=== PATIENT | female | born 1960 | race African-American/Black ===

== ENCOUNTER 2016-11-24 14:20 | Emergency (ER) | payer MEDICARE ==
[2016-11-24] MEDS ORDERED: ONDANSETRON 4MG/2ML VIAL (J2405) As Ordered ONE (15:58)
--- NOTE | 2016-11-24 16:01 | REP ---
ABDOMEN AND FLAT UPRIGHT PA CHEST, THREE VIEWS: HISTORY: Abdominal pain. A small amount of air is present in small and large intestine. There are no air fluid levels or dilated loops of intestine. There is no pneumoperitoneum. A 10 mm calcification is present in the left lateral abdomen. The lungs are clear. IMPRESSION: Nonspecific bowel gas pattern. Signed by Suleiman Colon MD 11/24/2016 04:05 P
[2016-11-24] MEDS ORDERED: PANTOPRAZOLE 40MG INJ (PROTONIX) (C9113) As Ordered ONE (16:06)
[2016-11-24 16:12] LABS: MEAN CORPUSCULAR HEMOGLOBIN 41.9 pg (27.0-33.0); MEAN CORPUSCULAR HGB CONC 33.8 g/dl (32.0-36.5); MEAN CORPUSCULAR VOLUME 123.9 fl (80.0-96.0); PLATELET COUNT, AUTOMATED 219 k/mm3 (150-450); RED CELL DISTRIBUTION WIDTH 19.6 % (11.5-14.5); WHITE BLOOD COUNT 4.7 K/mm3 (4.0-10.0)
[2016-11-24 16:16] LABS: ALBUMIN 3.8 GM/DL (3.2-5.2); ALBUMIN/GLOBULIN RATIO 1.06 (1.00-1.93); ALKALINE PHOSPHATASE 92 U/L (45-117); ALT/SGPT 71 U/L (12-78); AMYLASE 37 U/L (25-115); ANION GAP 11 MEQ/L (8-16); AST/SGOT 157 U/L (15-37); BILIRUBIN,DIRECT 0.4 MG/DL (0.0-0.2); BILIRUBIN,TOTAL 2.6 MG/DL (0.2-1.0); BLOOD UREA NITROGEN 9 MG/DL (7-18); CARBON DIOXIDE LEVEL 24 MEQ/L (21-32); CHLORIDE LEVEL 109 MEQ/L (98-107); CREATININE FOR GFR 0.75 MG/DL (0.55-1.02); GLOMERULAR FILTRATION RATE > 60.0 (>51); GLUCOSE, FASTING 97 MG/DL (70-105); POTASSIUM SERUM 3.7 MEQ/L (3.5-5.1); SODIUM LEVEL 144 MEQ/L (136-145); TOTAL PROTEIN 7.4 GM/DL (6.4-8.2)
[2016-11-24 16:21] LABS: INR 1.05
[2016-11-24 17:23] LABS: BASOPHILS 1 % (0-4); EOSINOPHILS 4 % (0-5); NUCLEATED RED BLOOD CELL 2 % (0-0)
[2016-11-24 17:24] LABS: ANISOCYTOSIS 2+; POIKILOCYTOSIS 1+; POLYCHROMASIA 1+; TEAR DROP CELLS 1+
--- NOTE | 2016-11-24 18:25 | EDDOCDS ---
Physician Documentation [facility] Name: Spring Hamilton Age: 56 yrs Sex: Female : 1960 Arrival Date: 11/24/2016 Time: 14:20 Bed I5 / M5 Private MD: NO PRIMARY PHYSICIAN, . Disposition: 11/24/16 17:56 Discharged to Home/Self Care. Impression: Anemia, unspecified, Urinary tract infection, site not specified, Nausea. - Condition is Stable. - Discharge Instructions: Anemia, Nonspecific, Urinary Tract Infection, [id number]. - Prescriptions for Cipro 500 mg Oral Tablet - take 1 tablet by ORAL route every 12 hours; 14 tablet. Pyridium 200 mg Oral Tablet - take 1 tablet by ORAL route every 8 hours for 3 days; 9 tablet. Zofran 4 mg Oral Tablet - take 1 tablet by ORAL route 4 times per day As needed; 10 tablet. - Medication Reconciliation, Local Pharmacy Hours form. - Follow up: Private Physician; When: 4 - 5 days; Reason: Recheck today's complaints, Continuance of care. - Problem is an ongoing problem. - Symptoms are unchanged. Historical: - Allergies: No known drug Allergies; - Home Meds: 1. pantoprazole 40 mg oral TbEC 1 tab once daily hasn't been taking because she read side effects 2. ibuprofen 800 mg Oral tab as needed (Last dose: Unknown) - PMHx: GERD; - PSHx: Cesearean Section; - Social history: Smoking status: Patient states was never smoker of tobacco. No barriers to communication noted, The patient speaks fluent Vietnamese, Speaks appropriately for age. - Family history: Not pertinent. - : The pt / caregiver states he / she is not on anticoagulants. Home medication list is obtained from the patient. - Exposure Risk Screening:: None identified. [employer]: 11/24 14:39 LMP N/A - Post-menopause ck1 Vital Signs: 14:21 BP 147 / 77; Pulse 90; Resp 18; Temp 98.6(O); Pulse Ox 100% on R/A; Weight 102.51 kg / dem1 226 lbs (M); Height 5 ft. 4 in. (162.56 cm); Pain 0/10; 18:21 BP 143 / 74; Pulse 80; Resp 16; Temp 97.7; Pulse Ox 95% ; Pain 0/10; cjh 14:21 Body Mass Index 38.79 (102.51 kg, 162.56 cm) dem1 MDM: 15:15 Undress patient appropriately for examination ordered. ke 15:15 NS 0.9% 1000 ml IV at 250 mL/hr continuous ordered. ke 15:15 Ondansetron 4 mg IVP once ordered. ke 15:15 pantoprazole 40 mg IV at bolus once ordered. ke 15:16 Amylase Ordered. EDMS 15:16 Basic Metabolic Profile Ordered. EDMS 15:16 CBC with Diff Ordered. EDMS 15:16 Lipase Ordered. EDMS 15:16 Liver Profile Ordered. EDMS 15:16 Prothrombin Time Profile\E\INR Ordered. EDMS 15:16 Urinalysis Ordered. EDMS 15:17 Urine Culture Ordered. EDMS 15:17 Abdomen, Flat\E\Upright,PA Chest Ordered. EDMS 15:17 NOTHING BY MOUTH+DIET ordered. EDMS 15:18 GASTROINTESTINAL (GI) PANEL Ordered. EDMS 16:14 DIFFERENTIAL NO CHARGE Ordered. EDMS 16:14 PLATELET ESTIMATE Ordered. EDMS 16:42 Financial registration complete. gjb 16:58 [facility] Payment Agreement was scanned into [employer] and attached to record. gjb 17:04 Basic Metabolic Profile Reviewed. ke 17:04 CBC with Diff Reviewed. ke 17:04 Liver Profile Reviewed. ke 17:04 Amylase Reviewed. ke 17:04 Lipase Reviewed. ke 17:04 Prothrombin Time Profile\E\INR Reviewed. ke 17:04 Abdomen, Flat\E\Upright,PA Chest Reviewed. ke 17:45 CBC with Diff Reviewed. ke 17:45 Urinalysis Reviewed. ke 17:45 PLATELET ESTIMATE Reviewed. ke Administered Medications: 16:15 Drug: Ondansetron 4 mg Route: IVP; Site: left antecubital; [facility] 16:15 Drug: pantoprazole 40 mg [pantoprazole 40 mg intravenous solution] Route: IV; Rate: cjh bolus; Site: left antecubital; 16:16 Drug: NS 0.9% 1000 ml Route: IV; Rate: 250 mL/hr; Site: right antecubital; [facility] 18:23 Follow up: IV Status: Infusion discontinued; IV Intake: 250ml [facility] Signatures: Dispatcher [employer] EDMS Chon Qiu, TELEMARKETING AGENT TELEMARKETING AGENT Amalia Rondon,RN RN ck1 Anahi RussoRN RN Bibiana Xiao The chart was reviewed and I authenticate all verbal orders and agree with the evaluation and treatment provided.Corrections: (The following items were deleted from the chart) 15:18 15:17 GASTROINTESTINAL (GI) PANEL+AZUCENA ordered. EDMS EDMS Attachments: 16:58 [facility] Payment Agreement abel MTDD
--- NOTE | 2016-11-24 18:25 | EDDOCDS ---
Nurse's Notes [facility] Name: Spring Hamilton Age: 56 yrs Sex: Female : 1960 Arrival Date: 11/24/2016 Time: 14:20 Bed I5 / M5 Private MD: NO PRIMARY PHYSICIAN, . Diagnosis: Anemia, unspecified;Urinary tract infection, site not specified;Nausea Presentation: 11/24 14:32 Presenting complaint: Patient states: "unable to tolerate any food", states immediate ck1 diarrhea after eating, increased weakness, "I feel like I have and unsteady gait". Drinking from [employer] to go cup. Denies pain. Adult Sepsis Screening: The patient does not have new or worsening altered mentation. Patient's respiratory rate is less than 22. Systolic blood pressure is greater than 100. Patient has a qSOFA score of 0- Negative Sepsis Screen. Suicide/Homicide risk assessment- the patient denies having any suicidal and/or homicidal ideations and does not present with any other emotional, behavioral or mental health complaints. 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 Transition of care: patient was not received from another setting of care. 14:32 Method Of Arrival: Walkin/Carried/Asstd ck1 14:32 Acuity: SALVATORE Level 3 ck1 Triage Assessment: 14:38 General: Appears in no apparent distress, comfortable, Behavior is appropriate for age, ck1 cooperative. Pain: Denies pain. HIV screening NA for this visit Offered previously. Neurological: Level of Consciousness is awake, alert, obeys commands, Oriented to person, place, time. Respiratory: Respiratory effort is unlabored, Respiratory pattern is regular, symmetrical. GI: Reports diarrhea. GI: Reports nausea. Derm: Skin is intact, is healthy with good turgor, Skin is pink, warm & dry. Musculoskeletal: Circulation, motion, and sensation intact Range of motion intact in all extremities. CONTENT PUBLISHER: 14:39 LMP N/A - Post-menopause ck1 Historical: - Allergies: No known drug Allergies; - Home Meds: 1. pantoprazole 40 mg oral TbEC 1 tab once daily hasn't been taking because she read side effects 2. ibuprofen 800 mg Oral tab as needed (Last dose: Unknown) - PMHx: GERD; - PSHx: Cesearean Section; - Social history: Smoking status: Patient states was never smoker of tobacco. No barriers to communication noted, The patient speaks fluent Jordanian, Speaks appropriately for age. - Family history: Not pertinent. - : The pt / caregiver states he / she is not on anticoagulants. Home medication list is obtained from the patient. - Exposure Risk Screening:: None identified. Screenin:16 Screening information is obtained from the patient. Fall risk: No risks identified. [facility] Assistance ADL's: requires no assistance with activities of daily living. Abuse/DV Screen: The patient / caregiver reports he/she is: not in a situation that causes fear, pain or injury. Nutritional screening: No deficits noted. Advance Directives: There is no active DNR order. home support is adequate. Assessment: 16:16 General: Appears in no apparent distress, comfortable, Behavior is appropriate for age, [facility] cooperative. Respiratory: Airway is patent Respiratory effort is even, unlabored, Respiratory pattern is regular, symmetrical. GI: Abdomen is non- distended Bowel sounds present X 4 quads. Abd is soft Abd is tender to palpation X 4 quads. Reports diarrhea. Derm: Skin is normal. 17:00 General: Appears in no apparent distress, comfortable, Behavior is appropriate for age, [facility] cooperative, warm blankets provided, denies needs at this time. 18:21 General: Appears in no apparent distress, comfortable, Behavior is appropriate for age, [facility] cooperative. General: reports feeling much better, reviewed discharge instructions, encouraged and answered questions, denies further needs. Pain: Denies pain. Vital Signs: 14:21 BP 147 / 77; Pulse 90; Resp 18; Temp 98.6(O); Pulse Ox 100% on R/A; Weight 102.51 kg [facility] (M); Height 5 ft. 4 in. (162.56 cm); Pain 0/10; 18:21 BP 143 / 74; Pulse 80; Resp 16; Temp 97.7; Pulse Ox 95% ; Pain 0/10; h 14:21 Body Mass Index 38.79 (102.51 kg, 162.56 cm) [facility] Vitals: 14:21 Log In Time: November 24, 2016 at 14:15. [facility] ED Course: 14:21 Patient visited by Uriah Harrison. [facility] 14:21 NO PRIMARY PHYSICIAN, . is Private Physician. dem1 14:21 Patient moved to Waiting dem1 14:23 Patient moved to Pre RCE dem1 14:36 Triage Initiated ck1 14:57 Patient moved to Triage 1 ck1 15:08 [facility] ke 15:08 Patient visited by Chon Qiu FNP. ke 15:08 Patient visited by Chon Qiu FNP. ke 15:17 Patient moved to I5 / M5 ttb 15:26 Patient visited by Zarina Gorman PCA. jlf 15:47 Patient visited by Chon Qiu FNP. ke 16:11 Patient visited by Zarina Gorman PCA. jlf 16:16 The patient / caregiver is instructed regarding the plan of care and ED course. cjh 16:16 Abdomen, Flat\\E\\Upright,PA Chest Returned. EDMS 16:16 Inserted saline lock: 20 gauge in right antecubital area and blood collected. The [facility] patient tolerated the procedure well. Labs drawn. (by ED staff). Sent per order to lab. 16:22 Patient visited by Zarina Gorman PCA. jlf 16:41 Patient visited by Zarina Groman PCA. jlf 16:41 Urinalysis Sent. jlf 16:41 Urine Culture Sent. jlf 16:58 [facility] Payment Agreement was scanned into [employer] and attached to record. gjb 17:20 Patient name changed from Spring\\S\\\\S\\Alfonso\\S\\ to Spring\\S\\Ines\\S\\Alfonso. EDMS 17:25 Patient visited by Chon Qiu FNP. ke 18:21 Discontinued lock intact, bleeding controlled, pressure dressing applied, No cjh redness/swelling at site. No procedures done that require assistance. Administered Medications: 16:15 Drug: Ondansetron 4 mg Route: IVP; Site: left antecubital; [facility] 16:15 Drug: pantoprazole 40 mg [pantoprazole 40 mg intravenous solution] Route: IV; Rate: cjh bolus; Site: left antecubital; 16:16 Drug: NS 0.9% 1000 ml Route: IV; Rate: 250 mL/hr; Site: right antecubital; [facility] 18:23 Follow up: IV Status: Infusion discontinued; IV Intake: 250ml cjh Intake: 18:23 IV: 250.00ml; Total: 250.00ml. [facility] Order Results: Lab Order: Amylase; SPEC'M 11/24/16 15:47 Test: AMYLASE; Value: 37; Range: 25-115; Units: U/L; Status: F Lab Order: Basic Metabolic Profile; SPEC'M 11/24/16 15:47 Test: GLUCOSE, FASTING; Value: 97; Range: 70-105; Units: MG/DL; Status: F Test: BLOOD UREA NITROGEN; Value: 9; Range: 7-18; Units: MG/DL; Status: F Test: CREATININE FOR GFR; Value: 0.75; Range: 0.55-1.02; Units: MG/DL; Status: F Test: GLOMERULAR FILTRATION RATE; Value: > 60.0; Range: >51; Status: F Test: SODIUM LEVEL; Value: 144; Range: 136-145; Units: MEQ/L; Status: F Test: POTASSIUM SERUM; Value: 3.7; Range: 3.5-5.1; Units: MEQ/L; Status: F Test: CHLORIDE LEVEL; Value: 109; Range: 98-107; Abnormal: Above high normal; Units: MEQ/L; Status: F Test: CARBON DIOXIDE LEVEL; Value: 24; Range: 21-32; Units: MEQ/L; Status: F Test: ANION GAP; Value: 11; Range: 8-16; Units: MEQ/L; Status: F Test: CALCIUM LEVEL; Value: 8.0; Range: 8.5-10.1; Abnormal: Below low normal; Units: MG/DL; Status: F Test Note: ; Units are mL/min/1.73 m2 Chronic Kidney Disease Staging per NKF: Stage I & II GFR >=60 Normal to Mildly Decreased Stage III GFR 30-59 Moderately Decreased Stage IV GFR 15-29 Severely Decreased Stage V GFR <15 Very Little GFR Left ESRD GFR <15 on HOME HEALTH CARE CASE MANAGER Lab Order: CBC with Diff; SPEC'M 11/24/16 15:47 Test: WHITE BLOOD COUNT; Value: 4.7; Range: 4.0-10.0; Units: K/mm3; Status: F Test: RED BLOOD COUNT; Value: 2.05; Range: 4.00-5.40; Abnormal: Below low normal; Units: M/mm3; Status: F Test: HEMOGLOBIN; Value: 8.6; Range: 12.0-16.0; Abnormal: Below low normal; Units: g/dl; Status: F Test: HEMATOCRIT; Value: 25.3; Range: 36.0-47.0; Abnormal: Below low normal; Units: %; Status: F Test: MEAN CORPUSCULAR VOLUME; Value: 123.9; Range: 80.0-96.0; Abnormal: Above high normal; Units: fl; Status: F Test: MEAN CORPUSCULAR HEMOGLOBIN; Value: 41.9; Range: 27.0-33.0; Abnormal: Above high normal; Units: pg; Status: F Test: MEAN CORPUSCULAR HGB CONC; Value: 33.8; Range: 32.0-36.5; Units: g/dl; Status: F Test: RED CELL DISTRIBUTION WIDTH; Value: 19.6; Range: 11.5-14.5; Abnormal: Above high normal; Units: %; Status: F Test: PLATELET COUNT, AUTOMATED; Value: 219; Range: 150-450; Units: k/mm3; Status: F Test: PLATELET ESTIMATE; Range: NORMAL; Status: I Test: NEUTROPHILS; Value: 65; Range: 35-75; Units: %; Status: F Test: LYMPHOCYTES; Value: 29; Range: 16-52; Units: %; Status: F Test: MONOCYTES; Value: 1; Range: 0-8; Units: %; Status: F Test: EOSINOPHILS; Value: 4; Range: 0-5; Units: %; Status: F Test: BASOPHILS; Value: 1; Range: 0-4; Units: %; Status: F Test: NUCLEATED RED BLOOD CELL; Value: 2; Range: 0-0; Abnormal: Above high normal; Units: %; Status: F Test: POLYCHROMASIA; Value: 1+; Status: F Test: POIKILOCYTOSIS; Value: 1+; Status: F Test: ANISOCYTOSIS; Value: 2+; Status: F Test: MACROCYTOSIS; Value: 3+; Status: F Test: TEAR DROP CELLS; Value: 1+; Status: F Lab Order: Lipase; SPEC'M 11/24/16 15:47 Test: LIPASE; Value: 116; Range: 73-393; Units: U/L; Status: F Lab Order: Liver Profile; [facility] 11/24/16 15:47 Test: AST/SGOT; Value: 157; Range: 15-37; Abnormal: Above high normal; Units: U/L; Status: F Test: ALT/SGPT; Value: 71; Range: 12-78; Units: U/L; Status: F Test: ALKALINE PHOSPHATASE; Value: 92; Range: 45-117; Units: U/L; Status: F Test: BILIRUBIN,TOTAL; Value: 2.6; Range: 0.2-1.0; Abnormal: Above high normal; Units: MG/DL; Status: F Test: BILIRUBIN,DIRECT; Value: 0.4; Range: 0.0-0.2; Abnormal: Above high normal; Units: MG/DL; Status: F Test: TOTAL PROTEIN; Value: 7.4; Range: 6.4-8.2; Units: GM/DL; Status: F Test: ALBUMIN; Value: 3.8; Range: 3.2-5.2; Units: GM/DL; Status: F Test: ALBUMIN/GLOBULIN RATIO; Value: 1.06; Range: 1.00-1.93; Status: F Lab Order: Prothrombin Time Profile\\E\\INR; [facility] 11/24/16 15:47 Test: PROTHROMBIN TIME; Value: 13.8; Range: 12.3-14.5; Units: SECONDS; Status: F Test: INR; Value: 1.05; Status: F Test Note: ; THERAPUTIC HUMAN INR VALUES INDICATIONS NORMAL RANGES PROPHYLAXIS/TREATMENT OF: VENOUS THROMBOSIS 2.0-3.0 PULMONARY EMBOLISM 2.0-3.0 PREVENTION OF SYSTEMIC EMBOLISM FROM: TISSUE HEART VALVES 2.0-3.0 ACUTE MYOCARDIAL INFARCTION 2.0-3.0 VALVULAR HEART DISEASE 2.0-3.0 ATRIAL FIBRILLATION 2.0-3.0 MECHANICAL VALVES(HIGH RISK) 2.5-3.5 RECURRENT MYOCARDIAL INFARCTION 2.5-3.5 Lab Order: Urinalysis; [facility] 11/24/16 16:36 Test: APPEARANCE, URINE; Value: CLEAR; Range: CLEAR; Status: F Test: COLOR, URINE; Value: DILLON; Range: YELLOW; Status: F Test: PH,URINE; Value: 6.0; Range: 5.0-9.0; Units: UNITS; Status: F Test: SPECIFIC GRAVITY URINE AUTO; Value: 1.019; Range: 1.002-1.035; Status: F Test: PROTEIN, URINE AUTO; Value: 1+; Range: NEGATIVE; Abnormal: Above high normal; Units: mg/dL; Status: F Test: GLUCOSE, URINE (UA) AUTO; Value: NEGATIVE; Range: NEGATIVE; Units: mg/dL; Status: F Test: KETONE, URINE AUTO; Value: TRACE; Range: NEGATIVE; Abnormal: Above high normal; Units: mg/dL; Status: F Test: UROBILINOGEN, URINE AUTO; Value: 4.0; Range: 0.0-2.0; Abnormal: Above high normal; Units: mg/dL; Status: F Test: BILIRUBIN, URINE AUTO; Value: 1+; Range: NEGATIVE; Abnormal: Above high normal; Status: F Test: NITRITE, URINE AUTO; Value: NEGATIVE; Range: NEGATIVE; Status: F Test: LEUKOCYTE ESTERASE, URINE AUTO; Value: 3+; Range: NEGATIVE; Abnormal: Above high normal; Status: F Test: BLOOD, URINE BLOOD; Value: 1+; Range: NEGATIVE; Abnormal: Above high normal; Status: F Test: WBC, URINE AUTO; Value: TNTC; Range: 0-3; Abnormal: Above high normal; Units: /HPF; Status: F Test: RBC, URINE AUTO; Value: 7; Range: 0-3; Abnormal: Above high normal; Units: /HPF; Status: F Test: BACTERIA, URINE AUTO; Value: 3+; Range: NEGATIVE; Abnormal: Above high normal; Status: F Test: SQUAMOUS EPITHELIAL CELL UR AU; Value: 1; Range: 0-6; Units: /HPF; Status: F Test: MUCUS, URINE; Value: LARGE; Range: NEGATIVE; Status: F Test: HYALINE CAST, URINE AUTO; Value: 5; Range: 0-1; Units: /LPF; Status: F Test: AMORPHOUS SEDIMENT; Value: SMALL; Range: NEGATIVE; Abnormal: Above high normal; Status: F Lab Order: PLATELET ESTIMATE; SPEC'M 11/24/16 15:47 Test: PLATELET ESTIMATE; Value: NORMAL; Range: NORMAL; Status: F Radiology Order: Abdomen, Flat\\E\\Upright,PA Chest Test: Abdomen, Flat\\E\\Upright,PA Chest REASON FOR EXAMINATION: Abdomen Pain; ABDOMEN AND FLAT UPRIGHT PA CHEST, THREE VIEWS:; ; HISTORY: Abdominal pain.; ; A small amount of air is present in small and large intestine. There are no air; fluid levels or dilated loops of intestine. There is no pneumoperitoneum. A 10; mm calcification is present in the left lateral abdomen. The lungs are clear.; ; IMPRESSION:; ; Nonspecific bowel gas pattern.; ; ; Signed by; Suleiman Colon MD 11/24/2016 04:05 P; Outcome: 17:56 Discharge ordered by Provider. dariana 18:21 Discharge Assessment: Patient awake, alert and oriented x 3. No cognitive and/or [facility] functional deficits noted. Patient verbalized understanding of disposition instructions. patient administered narcotics - no. The following High Risk Discharge criteria are identified: None. Discharged to home ambulatory, with family. Condition: good Condition: stable Condition: improved. Discharge instructions given to patient, Instructed on discharge instructions, follow up and referral plans. medication usage, Demonstrated understanding of instructions, medications, Pt was receptive of discharge instructions/ teaching. Prescriptions given X 4. No special radiology studies were completed. Property :Personal belongings accompany Pt. 18:24 Patient left the ED. [facility] Signatures: Dispatcher [employer] EDMS Chon Qiu, HISTORY TUTOR HISTORY TUTOR Amalia RondonRN Uriah Antunez Jane, RN RN [facility] Heidi Pat RN RN ttb [place], Jordain, LACHO SADDLE STITCHER Bibiana Anand MTDD
--- NOTE | 2016-11-26 19:25 | EDDOCDS ---
Nurse's Notes [facility] Name: Spring Hamilton Age: 56 yrs Sex: Female : 1960 Arrival Date: 11/24/2016 Time: 14:20 Bed I5 / M5 Private MD: NO PRIMARY PHYSICIAN, . Diagnosis: Anemia, unspecified;Urinary tract infection, site not specified;Nausea Presentation: 11/24 14:32 Presenting complaint: Patient states: "unable to tolerate any food", states immediate ck1 diarrhea after eating, increased weakness, "I feel like I have and unsteady gait". Drinking from [employer] to go cup. Denies pain. Adult Sepsis Screening: The patient does not have new or worsening altered mentation. Patient's respiratory rate is less than 22. Systolic blood pressure is greater than 100. Patient has a qSOFA score of 0- Negative Sepsis Screen. Suicide/Homicide risk assessment- the patient denies having any suicidal and/or homicidal ideations and does not present with any other emotional, behavioral or mental health complaints. Status: Patient is not a service department manager or dependent. Transition of care: patient was not received from another setting of care. 14:32 Method Of Arrival: Walkin/Carried/Asstd ck1 14:32 Acuity: SALVATORE Level 3 ck1 Triage Assessment: 14:38 General: Appears in no apparent distress, comfortable, Behavior is appropriate for age, ck1 cooperative. Pain: Denies pain. HIV screening NA for this visit Offered previously. Neurological: Level of Consciousness is awake, alert, obeys commands, Oriented to person, place, time. Respiratory: Respiratory effort is unlabored, Respiratory pattern is regular, symmetrical. GI: Reports diarrhea. GI: Reports nausea. Derm: Skin is intact, is healthy with good turgor, Skin is pink, warm & dry. Musculoskeletal: Circulation, motion, and sensation intact Range of motion intact in all extremities. GROUP LEADER: 14:39 LMP N/A - Post-menopause ck1 Historical: - Allergies: No known drug Allergies; - Home Meds: 1. pantoprazole 40 mg oral TbEC 1 tab once daily hasn't been taking because she read side effects 2. ibuprofen 800 mg Oral tab as needed (Last dose: Unknown) - PMHx: GERD; - PSHx: Cesearean Section; - Social history: Smoking status: Patient states was never smoker of tobacco. No barriers to communication noted, The patient speaks fluent Wallisian, Speaks appropriately for age. - Family history: Not pertinent. - : The pt / caregiver states he / she is not on anticoagulants. Home medication list is obtained from the patient. - Exposure Risk Screening:: None identified. Screenin:16 Screening information is obtained from the patient. Fall risk: No risks identified. [facility] Assistance ADL's: requires no assistance with activities of daily living. Abuse/DV Screen: The patient / caregiver reports he/she is: not in a situation that causes fear, pain or injury. Nutritional screening: No deficits noted. Advance Directives: There is no active DNR order. home support is adequate. Assessment: 16:16 General: Appears in no apparent distress, comfortable, Behavior is appropriate for age, [facility] cooperative. Respiratory: Airway is patent Respiratory effort is even, unlabored, Respiratory pattern is regular, symmetrical. GI: Abdomen is non- distended Bowel sounds present X 4 quads. Abd is soft Abd is tender to palpation X 4 quads. Reports diarrhea. Derm: Skin is normal. 17:00 General: Appears in no apparent distress, comfortable, Behavior is appropriate for age, [facility] cooperative, warm blankets provided, denies needs at this time. 18:21 General: Appears in no apparent distress, comfortable, Behavior is appropriate for age, [facility] cooperative. General: reports feeling much better, reviewed discharge instructions, encouraged and answered questions, denies further needs. Pain: Denies pain. Vital Signs: 14:21 BP 147 / 77; Pulse 90; Resp 18; Temp 98.6(O); Pulse Ox 100% on R/A; Weight 102.51 kg [facility] (M); Height 5 ft. 4 in. (162.56 cm); Pain 0/10; 18:21 BP 143 / 74; Pulse 80; Resp 16; Temp 97.7; Pulse Ox 95% ; Pain 0/10; h 14:21 Body Mass Index 38.79 (102.51 kg, 162.56 cm) [facility] Vitals: 14:21 Log In Time: November 24, 2016 at 14:15. [facility] ED Course: 14:21 Patient visited by Uriah Harrison. [facility] 14:21 NO PRIMARY PHYSICIAN, . is Private Physician. dem1 14:21 Patient moved to Waiting dem1 14:23 Patient moved to Pre RCE dem1 14:36 Triage Initiated ck1 14:57 Patient moved to Triage 1 ck1 15:08 [facility] ke 15:08 Patient visited by Chon Qiu FNP. ke 15:08 Patient visited by Chon Qiu FNP. ke 15:17 Patient moved to I5 / M5 ttb 15:26 Patient visited by Zarina Gorman PCA. jlf 15:47 Patient visited by Chon Qiu FNP. ke 16:11 Patient visited by Zarina Gorman PCA. jlf 16:16 The patient / caregiver is instructed regarding the plan of care and ED course. [facility] 16:16 Abdomen, Flat\\E\\Upright,PA Chest Returned. EDMS 16:16 Inserted saline lock: 20 gauge in right antecubital area and blood collected. The [facility] patient tolerated the procedure well. Labs drawn. (by ED staff). Sent per order to lab. 16:22 Patient visited by Zarina Gorman PCA. jlf 16:41 Patient visited by Zarina Gorman PCA. jlf 16:41 Urinalysis Sent. jlf 16:41 Urine Culture Sent. jlf 16:58 [facility] Payment Agreement was scanned into [employer] and attached to record. gjb 17:20 Patient name changed from Spring\\S\\\\S\\Alfonso\\S\\ to Spring\\S\\Ines\\S\\Alfonso. EDMS 17:25 Patient visited by Chon Qiu FNP. ke 18:21 Discontinued lock intact, bleeding controlled, pressure dressing applied, No [facility] redness/swelling at site. No procedures done that require assistance. 11/25 09:56 T-Sheet-- Draft Copy was scanned into [employer] and attached to record. gb Administered Medications: 11/24 16:15 Drug: Ondansetron 4 mg Route: IVP; Site: left antecubital; [facility] 16:15 Drug: pantoprazole 40 mg [pantoprazole 40 mg intravenous solution] Route: IV; Rate: cjh bolus; Site: left antecubital; 16:16 Drug: NS 0.9% 1000 ml Route: IV; Rate: 250 mL/hr; Site: right antecubital; cjh 18:23 Follow up: IV Status: Infusion discontinued; IV Intake: 250ml [facility] Intake: 18:23 IV: 250.00ml; Total: 250.00ml. [facility] Order Results: Lab Order: Amylase; SPEC'M 11/24/16 15:47 Test: AMYLASE; Value: 37; Range: 25-115; Units: U/L; Status: F Lab Order: Basic Metabolic Profile; SPEC' 11/24/16 15:47 Test: GLUCOSE, FASTING; Value: 97; Range: 70-105; Units: MG/DL; Status: F Test: BLOOD UREA NITROGEN; Value: 9; Range: 7-18; Units: MG/DL; Status: F Test: CREATININE FOR GFR; Value: 0.75; Range: 0.55-1.02; Units: MG/DL; Status: F Test: GLOMERULAR FILTRATION RATE; Value: > 60.0; Range: >51; Status: F Test: SODIUM LEVEL; Value: 144; Range: 136-145; Units: MEQ/L; Status: F Test: POTASSIUM SERUM; Value: 3.7; Range: 3.5-5.1; Units: MEQ/L; Status: F Test: CHLORIDE LEVEL; Value: 109; Range: 98-107; Abnormal: Above high normal; Units: MEQ/L; Status: F Test: CARBON DIOXIDE LEVEL; Value: 24; Range: 21-32; Units: MEQ/L; Status: F Test: ANION GAP; Value: 11; Range: 8-16; Units: MEQ/L; Status: F Test: CALCIUM LEVEL; Value: 8.0; Range: 8.5-10.1; Abnormal: Below low normal; Units: MG/DL; Status: F Test Note: ; Units are mL/min/1.73 m2 Chronic Kidney Disease Staging per NKF: Stage I & II GFR >=60 Normal to Mildly Decreased Stage III GFR 30-59 Moderately Decreased Stage IV GFR 15-29 Severely Decreased Stage V GFR <15 Very Little GFR Left ESRD GFR <15 on SALES MARKETING MANAGER Lab Order: CBC with Diff; SPEC'11/24/16 15:47 Test: WHITE BLOOD COUNT; Value: 4.7; Range: 4.0-10.0; Units: K/mm3; Status: F Test: RED BLOOD COUNT; Value: 2.05; Range: 4.00-5.40; Abnormal: Below low normal; Units: M/mm3; Status: F Test: HEMOGLOBIN; Value: 8.6; Range: 12.0-16.0; Abnormal: Below low normal; Units: g/dl; Status: F Test: HEMATOCRIT; Value: 25.3; Range: 36.0-47.0; Abnormal: Below low normal; Units: %; Status: F Test: MEAN CORPUSCULAR VOLUME; Value: 123.9; Range: 80.0-96.0; Abnormal: Above high normal; Units: fl; Status: F Test: MEAN CORPUSCULAR HEMOGLOBIN; Value: 41.9; Range: 27.0-33.0; Abnormal: Above high normal; Units: pg; Status: F Test: MEAN CORPUSCULAR HGB CONC; Value: 33.8; Range: 32.0-36.5; Units: g/dl; Status: F Test: RED CELL DISTRIBUTION WIDTH; Value: 19.6; Range: 11.5-14.5; Abnormal: Above high normal; Units: %; Status: F Test: PLATELET COUNT, AUTOMATED; Value: 219; Range: 150-450; Units: k/mm3; Status: F Test: PLATELET ESTIMATE; Range: NORMAL; Status: I Test: NEUTROPHILS; Value: 65; Range: 35-75; Units: %; Status: F Test: LYMPHOCYTES; Value: 29; Range: 16-52; Units: %; Status: F Test: MONOCYTES; Value: 1; Range: 0-8; Units: %; Status: F Test: EOSINOPHILS; Value: 4; Range: 0-5; Units: %; Status: F Test: BASOPHILS; Value: 1; Range: 0-4; Units: %; Status: F Test: NUCLEATED RED BLOOD CELL; Value: 2; Range: 0-0; Abnormal: Above high normal; Units: %; Status: F Test: POLYCHROMASIA; Value: 1+; Status: F Test: POIKILOCYTOSIS; Value: 1+; Status: F Test: ANISOCYTOSIS; Value: 2+; Status: F Test: MACROCYTOSIS; Value: 3+; Status: F Test: TEAR DROP CELLS; Value: 1+; Status: F Lab Order: Lipase; SPEC'M 11/24/16 15:47 Test: LIPASE; Value: 116; Range: 73-393; Units: U/L; Status: F Lab Order: Liver Profile; [facility] 11/24/16 15:47 Test: AST/SGOT; Value: 157; Range: 15-37; Abnormal: Above high normal; Units: U/L; Status: F Test: ALT/SGPT; Value: 71; Range: 12-78; Units: U/L; Status: F Test: ALKALINE PHOSPHATASE; Value: 92; Range: 45-117; Units: U/L; Status: F Test: BILIRUBIN,TOTAL; Value: 2.6; Range: 0.2-1.0; Abnormal: Above high normal; Units: MG/DL; Status: F Test: BILIRUBIN,DIRECT; Value: 0.4; Range: 0.0-0.2; Abnormal: Above high normal; Units: MG/DL; Status: F Test: TOTAL PROTEIN; Value: 7.4; Range: 6.4-8.2; Units: GM/DL; Status: F Test: ALBUMIN; Value: 3.8; Range: 3.2-5.2; Units: GM/DL; Status: F Test: ALBUMIN/GLOBULIN RATIO; Value: 1.06; Range: 1.00-1.93; Status: F Lab Order: Prothrombin Time Profile\\E\\INR; [facility] 11/24/16 15:47 Test: PROTHROMBIN TIME; Value: 13.8; Range: 12.3-14.5; Units: SECONDS; Status: F Test: INR; Value: 1.05; Status: F Test Note: ; THERAPUTIC HUMAN INR VALUES INDICATIONS NORMAL RANGES PROPHYLAXIS/TREATMENT OF: VENOUS THROMBOSIS 2.0-3.0 PULMONARY EMBOLISM 2.0-3.0 PREVENTION OF SYSTEMIC EMBOLISM FROM: TISSUE HEART VALVES 2.0-3.0 ACUTE MYOCARDIAL INFARCTION 2.0-3.0 VALVULAR HEART DISEASE 2.0-3.0 ATRIAL FIBRILLATION 2.0-3.0 MECHANICAL VALVES(HIGH RISK) 2.5-3.5 RECURRENT MYOCARDIAL INFARCTION 2.5-3.5 Lab Order: Urinalysis; [facility] 11/24/16 16:36 Test: APPEARANCE, URINE; Value: CLEAR; Range: CLEAR; Status: F Test: COLOR, URINE; Value: DILLON; Range: YELLOW; Status: F Test: PH,URINE; Value: 6.0; Range: 5.0-9.0; Units: UNITS; Status: F Test: SPECIFIC GRAVITY URINE AUTO; Value: 1.019; Range: 1.002-1.035; Status: F Test: PROTEIN, URINE AUTO; Value: 1+; Range: NEGATIVE; Abnormal: Above high normal; Units: mg/dL; Status: F Test: GLUCOSE, URINE (UA) AUTO; Value: NEGATIVE; Range: NEGATIVE; Units: mg/dL; Status: F Test: KETONE, URINE AUTO; Value: TRACE; Range: NEGATIVE; Abnormal: Above high normal; Units: mg/dL; Status: F Test: UROBILINOGEN, URINE AUTO; Value: 4.0; Range: 0.0-2.0; Abnormal: Above high normal; Units: mg/dL; Status: F Test: BILIRUBIN, URINE AUTO; Value: 1+; Range: NEGATIVE; Abnormal: Above high normal; Status: F Test: NITRITE, URINE AUTO; Value: NEGATIVE; Range: NEGATIVE; Status: F Test: LEUKOCYTE ESTERASE, URINE AUTO; Value: 3+; Range: NEGATIVE; Abnormal: Above high normal; Status: F Test: BLOOD, URINE BLOOD; Value: 1+; Range: NEGATIVE; Abnormal: Above high normal; Status: F Test: WBC, URINE AUTO; Value: TNTC; Range: 0-3; Abnormal: Above high normal; Units: /HPF; Status: F Test: RBC, URINE AUTO; Value: 7; Range: 0-3; Abnormal: Above high normal; Units: /HPF; Status: F Test: BACTERIA, URINE AUTO; Value: 3+; Range: NEGATIVE; Abnormal: Above high normal; Status: F Test: SQUAMOUS EPITHELIAL CELL UR AU; Value: 1; Range: 0-6; Units: /HPF; Status: F Test: MUCUS, URINE; Value: LARGE; Range: NEGATIVE; Status: F Test: HYALINE CAST, URINE AUTO; Value: 5; Range: 0-1; Units: /LPF; Status: F Test: AMORPHOUS SEDIMENT; Value: SMALL; Range: NEGATIVE; Abnormal: Above high normal; Status: F Lab Order: Urine Culture; SPEC'M 11/24/16 16:35 Test: URINE CULTURE; Value: <EXTERNAL COMMENT eCWMed> FULL REPORT IN LAB NOTES (eCW and Medent).; Status: F Test: URINE CULTURE; Value: ORGANISM 1: ESCHERICHIA COLI; Status: F Test: URINE CULTURE; Value: ESCHERICHIA COLI; Status: F Test: URINE CULTURE; Value: COLONY COUNT CFU/ml >100,000; Status: F Test: URINE CULTURE; Value: GRAM NEG SENSI - VITEK 80; Status: F Test: URINE CULTURE; Value: Method: VIT2; Status: F Test: URINE CULTURE; Value: EXTD BRD SPCTRM BETA LACTAMASE -; Status: F Test: URINE CULTURE; Value: TRIMETHOPRIM/SULFAMETHOXAZOLE <=20 S; Status: F Test: URINE CULTURE; Value: AMPICILLIN >=32 R; Status: F Test: URINE CULTURE; Value: GENTAMICIN <=1 S; Status: F Test: URINE CULTURE; Value: NITROFURANTOIN <=16 S; Status: F Test: URINE CULTURE; Value: CEFAZOLIN <=4 S; Status: F Test: URINE CULTURE; Value: LEVOFLOXACIN >=8 R; Status: F Test: URINE CULTURE; Value: TOBRAMYCIN <=1 S; Status: F Test: URINE CULTURE; Value: CEFTRIAXONE <=1 S; Status: F Test: URINE CULTURE; Value: CEFTAZIDIME <=1 S; Status: F Test: URINE CULTURE; Value: AMPICILLIN/SULBACTAM >=32 R; Status: F Test: URINE CULTURE; Value: PIPERACILLIN/TAZOBACTAM <=4 S; Status: F Test: URINE CULTURE; Value: AZTREONAM <=1 S; Status: F Test: URINE CULTURE; Value: ERTAPENEM <=0.5 S; Status: F Test: URINE CULTURE; Value: MEROPENEM <=0.25 S; Status: F Test: URINE CULTURE; Value: TIGECYCLINE <=0.5 S; Status: F Test: URINE CULTURE; Value: CEFEPIME <=1 S; Status: F Lab Order: PLATELET ESTIMATE; SPEC'M 11/24/16 15:47 Test: PLATELET ESTIMATE; Value: NORMAL; Range: NORMAL; Status: F Radiology Order: Abdomen, Flat\\E\\Upright,PA Chest Test: Abdomen, Flat\\E\\Upright,PA Chest REASON FOR EXAMINATION: Abdomen Pain; ABDOMEN AND FLAT UPRIGHT PA CHEST, THREE VIEWS:; ; HISTORY: Abdominal pain.; ; A small amount of air is present in small and large intestine. There are no air; fluid levels or dilated loops of intestine. There is no pneumoperitoneum. A 10; mm calcification is present in the left lateral abdomen. The lungs are clear.; ; IMPRESSION:; ; Nonspecific bowel gas pattern.; ; ; Signed by; Suleiman Colon MD 11/24/2016 04:05 P; Outcome: 17:56 Discharge ordered by Provider. dariana 18:21 Discharge Assessment: Patient awake, alert and oriented x 3. No cognitive and/or [facility] functional deficits noted. Patient verbalized understanding of disposition instructions. patient administered narcotics - no. The following High Risk Discharge criteria are identified: None. Discharged to home ambulatory, with family. Condition: good Condition: stable Condition: improved. Discharge instructions given to patient, Instructed on discharge instructions, follow up and referral plans. medication usage, Demonstrated understanding of instructions, medications, Pt was receptive of discharge instructions/ teaching. Prescriptions given X 4. No special radiology studies were completed. Property :Personal belongings accompany Pt. 18:24 Patient left the ED. [facility] Signatures: Dispatcher [employer] EDMS Savanah Torres, Reg Reg gb Chon Qiu, SENIOR ETL DEVELOPER SENIOR ETL DEVELOPER Amalia RondonRN RN Uriah Jefferson Jane, RN RN [facility] Heidi Pat RN RN ttb Forney, Jordain, LACHO GLUE JOINTER OPERATOR Bibiana Anand Chart Complete MTDD
--- NOTE | 2016-11-26 19:25 | EDDOCDS ---
Physician Documentation [facility] Name: Spring Hamilton Age: 56 yrs Sex: Female : 1960 Arrival Date: 11/24/2016 Time: 14:20 Bed I5 / M5 Private MD: NO PRIMARY PHYSICIAN, . Disposition: 11/24/16 17:56 Discharged to Home/Self Care. Impression: Anemia, unspecified, Urinary tract infection, site not specified, Nausea. - Condition is Stable. - Discharge Instructions: Anemia, Nonspecific, Urinary Tract Infection, [id number]. - Prescriptions for Cipro 500 mg Oral Tablet - take 1 tablet by ORAL route every 12 hours; 14 tablet. Pyridium 200 mg Oral Tablet - take 1 tablet by ORAL route every 8 hours for 3 days; 9 tablet. Zofran 4 mg Oral Tablet - take 1 tablet by ORAL route 4 times per day As needed; 10 tablet. - Medication Reconciliation, Local Pharmacy Hours form. - Follow up: Private Physician; When: 4 - 5 days; Reason: Recheck today's complaints, Continuance of care. - Problem is an ongoing problem. - Symptoms are unchanged. Historical: - Allergies: No known drug Allergies; - Home Meds: 1. pantoprazole 40 mg oral TbEC 1 tab once daily hasn't been taking because she read side effects 2. ibuprofen 800 mg Oral tab as needed (Last dose: Unknown) - PMHx: GERD; - PSHx: Cesearean Section; - Social history: Smoking status: Patient states was never smoker of tobacco. No barriers to communication noted, The patient speaks fluent [place], Speaks appropriately for age. - Family history: Not pertinent. - : The pt / caregiver states he / she is not on anticoagulants. Home medication list is obtained from the patient. - Exposure Risk Screening:: None identified. SENIOR UI WEB DEVELOPER: 11/24 14:39 LMP N/A - Post-menopause ck1 Vital Signs: 14:21 BP 147 / 77; Pulse 90; Resp 18; Temp 98.6(O); Pulse Ox 100% on R/A; Weight 102.51 kg / dem1 226 lbs (M); Height 5 ft. 4 in. (162.56 cm); Pain 0/10; 18:21 BP 143 / 74; Pulse 80; Resp 16; Temp 97.7; Pulse Ox 95% ; Pain 0/10; cjh 14:21 Body Mass Index 38.79 (102.51 kg, 162.56 cm) dem1 MDM: 15:15 Undress patient appropriately for examination ordered. ke 15:15 NS 0.9% 1000 ml IV at 250 mL/hr continuous ordered. ke 15:15 Ondansetron 4 mg IVP once ordered. ke 15:15 pantoprazole 40 mg IV at bolus once ordered. ke 15:16 Amylase Ordered. EDMS 15:16 Basic Metabolic Profile Ordered. EDMS 15:16 CBC with Diff Ordered. EDMS 15:16 Lipase Ordered. EDMS 15:16 Liver Profile Ordered. EDMS 15:16 Prothrombin Time Profile\E\INR Ordered. EDMS 15:16 Urinalysis Ordered. EDMS 15:17 Urine Culture Ordered. EDMS 15:17 Abdomen, Flat\E\Upright,PA Chest Ordered. EDMS 15:17 NOTHING BY MOUTH+DIET ordered. EDMS 15:18 GASTROINTESTINAL (GI) PANEL Ordered. EDMS 16:14 DIFFERENTIAL NO CHARGE Ordered. EDMS 16:14 PLATELET ESTIMATE Ordered. EDMS 16:42 Financial registration complete. gjb 16:58 [facility] Payment Agreement was scanned into [employer] and attached to record. gjb 17:04 Basic Metabolic Profile Reviewed. ke 17:04 CBC with Diff Reviewed. ke 17:04 Liver Profile Reviewed. ke 17:04 Amylase Reviewed. ke 17:04 Lipase Reviewed. ke 17:04 Prothrombin Time Profile\E\INR Reviewed. ke 17:04 Abdomen, Flat\E\Upright,PA Chest Reviewed. ke 17:45 CBC with Diff Reviewed. ke 17:45 Urinalysis Reviewed. ke 17:45 PLATELET ESTIMATE Reviewed. ke 11/25 09:56 T-Sheet-- Draft Copy was scanned into [employer] and attached to record. gb Administered Medications: 11/24 16:15 Drug: Ondansetron 4 mg Route: IVP; Site: left antecubital; [facility] 16:15 Drug: pantoprazole 40 mg [pantoprazole 40 mg intravenous solution] Route: IV; Rate: cjh bolus; Site: left antecubital; 16:16 Drug: NS 0.9% 1000 ml Route: IV; Rate: 250 mL/hr; Site: right antecubital; [facility] 18:23 Follow up: IV Status: Infusion discontinued; IV Intake: 250ml [facility] Signatures: Dispatcher [employer] EDMS Savanah Torres, Reg Reg gb Chon Qiu, PODIATRY TEACHER PODIATRY TEACHER Amalia RondonRN RN ck1 Anahi RussoRN RN [facility] Bibiana Hoffmann The chart was reviewed and I authenticate all verbal orders and agree with the evaluation and treatment provided.Corrections: (The following items were deleted from the chart) 15:18 15:17 GASTROINTESTINAL (GI) PANEL+AZUCENA ordered. EDMS EDMS Attachments: 16:58 [facility] Payment Agreement [facility] 11/25 09:56 T-Sheet-- Draft Copy Chart Complete MTDD
--- NOTE | 2016-11-26 19:25 | EDDOCDS ---
Physician Documentation [facility] Name: Spring Hamilton Age: 56 yrs Sex: Female : 1960 Arrival Date: 11/24/2016 Time: 14:20 Bed I5 / M5 Private MD: NO PRIMARY PHYSICIAN, . Disposition: 11/24/16 17:56 Discharged to Home/Self Care. Impression: Anemia, unspecified, Urinary tract infection, site not specified, Nausea. - Condition is Stable. - Discharge Instructions: Anemia, Nonspecific, Urinary Tract Infection, [id number]. - Prescriptions for Cipro 500 mg Oral Tablet - take 1 tablet by ORAL route every 12 hours; 14 tablet. Pyridium 200 mg Oral Tablet - take 1 tablet by ORAL route every 8 hours for 3 days; 9 tablet. Zofran 4 mg Oral Tablet - take 1 tablet by ORAL route 4 times per day As needed; 10 tablet. - Medication Reconciliation, Local Pharmacy Hours form. - Follow up: Private Physician; When: 4 - 5 days; Reason: Recheck today's complaints, Continuance of care. - Problem is an ongoing problem. - Symptoms are unchanged. Historical: - Allergies: No known drug Allergies; - Home Meds: 1. pantoprazole 40 mg oral TbEC 1 tab once daily hasn't been taking because she read side effects 2. ibuprofen 800 mg Oral tab as needed (Last dose: Unknown) - PMHx: GERD; - PSHx: Cesearean Section; - Social history: Smoking status: Patient states was never smoker of tobacco. No barriers to communication noted, The patient speaks fluent [place], Speaks appropriately for age. - Family history: Not pertinent. - : The pt / caregiver states he / she is not on anticoagulants. Home medication list is obtained from the patient. - Exposure Risk Screening:: None identified. SEBD TEACHER: 11/24 14:39 LMP N/A - Post-menopause ck1 Vital Signs: 14:21 BP 147 / 77; Pulse 90; Resp 18; Temp 98.6(O); Pulse Ox 100% on R/A; Weight 102.51 kg / dem1 226 lbs (M); Height 5 ft. 4 in. (162.56 cm); Pain 0/10; 18:21 BP 143 / 74; Pulse 80; Resp 16; Temp 97.7; Pulse Ox 95% ; Pain 0/10; cjh 14:21 Body Mass Index 38.79 (102.51 kg, 162.56 cm) dem1 MDM: 15:15 Undress patient appropriately for examination ordered. ke 15:15 NS 0.9% 1000 ml IV at 250 mL/hr continuous ordered. ke 15:15 Ondansetron 4 mg IVP once ordered. ke 15:15 pantoprazole 40 mg IV at bolus once ordered. ke 15:16 Amylase Ordered. EDMS 15:16 Basic Metabolic Profile Ordered. EDMS 15:16 CBC with Diff Ordered. EDMS 15:16 Lipase Ordered. EDMS 15:16 Liver Profile Ordered. EDMS 15:16 Prothrombin Time Profile\E\INR Ordered. EDMS 15:16 Urinalysis Ordered. EDMS 15:17 Urine Culture Ordered. EDMS 15:17 Abdomen, Flat\E\Upright,PA Chest Ordered. EDMS 15:17 NOTHING BY MOUTH+DIET ordered. EDMS 15:18 GASTROINTESTINAL (GI) PANEL Ordered. EDMS 16:14 DIFFERENTIAL NO CHARGE Ordered. EDMS 16:14 PLATELET ESTIMATE Ordered. EDMS 16:42 Financial registration complete. gjb 16:58 [facility] Payment Agreement was scanned into [employer] and attached to record. gjb 17:04 Basic Metabolic Profile Reviewed. ke 17:04 CBC with Diff Reviewed. ke 17:04 Liver Profile Reviewed. ke 17:04 Amylase Reviewed. ke 17:04 Lipase Reviewed. ke 17:04 Prothrombin Time Profile\E\INR Reviewed. ke 17:04 Abdomen, Flat\E\Upright,PA Chest Reviewed. ke 17:45 CBC with Diff Reviewed. ke 17:45 Urinalysis Reviewed. ke 17:45 PLATELET ESTIMATE Reviewed. ke 11/25 09:56 T-Sheet-- Draft Copy was scanned into [employer] and attached to record. gb Administered Medications: 11/24 16:15 Drug: Ondansetron 4 mg Route: IVP; Site: left antecubital; [facility] 16:15 Drug: pantoprazole 40 mg [pantoprazole 40 mg intravenous solution] Route: IV; Rate: cjh bolus; Site: left antecubital; 16:16 Drug: NS 0.9% 1000 ml Route: IV; Rate: 250 mL/hr; Site: right antecubital; [facility] 18:23 Follow up: IV Status: Infusion discontinued; IV Intake: 250ml [facility] Signatures: Dispatcher [employer] EDMS Savanah Torres, Reg Reg gb Chon Qiu, MOTOR VEHICLE LICENSE CLERK MOTOR VEHICLE LICENSE CLERK Amalia RondonRN RN ck1 Anahi RussoRN RN [facility] Bibiana Hoffmann The chart was reviewed and I authenticate all verbal orders and agree with the evaluation and treatment provided.Corrections: (The following items were deleted from the chart) 15:18 15:17 GASTROINTESTINAL (GI) PANEL+AZUCENA ordered. EDMS EDMS Attachments: 16:58 [facility] Payment Agreement [facility] 11/25 09:56 T-Sheet-- Draft Copy Chart Complete MTDD
--- NOTE | 2016-11-27 10:19 | EDDOCDS ---
Physician Documentation [facility] Name: Spring Hamilton Age: 56 yrs Sex: Female : 1960 Arrival Date: 11/24/2016 Time: 14:20 Bed I5 / M5 Private MD: NO PRIMARY PHYSICIAN, . Disposition: 11/24/16 17:56 Discharged to Home/Self Care. Impression: Anemia, unspecified, Urinary tract infection, site not specified, Nausea. - Condition is Stable. - Discharge Instructions: Anemia, Nonspecific, Urinary Tract Infection, [id number]. - Prescriptions for Cipro 500 mg Oral Tablet - take 1 tablet by ORAL route every 12 hours; 14 tablet. Pyridium 200 mg Oral Tablet - take 1 tablet by ORAL route every 8 hours for 3 days; 9 tablet. Zofran 4 mg Oral Tablet - take 1 tablet by ORAL route 4 times per day As needed; 10 tablet. - Medication Reconciliation, Local Pharmacy Hours form. - Follow up: Private Physician; When: 4 - 5 days; Reason: Recheck today's complaints, Continuance of care. - Problem is an ongoing problem. - Symptoms are unchanged. Historical: - Allergies: No known drug Allergies; - Home Meds: 1. pantoprazole 40 mg oral TbEC 1 tab once daily hasn't been taking because she read side effects 2. ibuprofen 800 mg Oral tab as needed (Last dose: Unknown) - PMHx: GERD; - PSHx: Cesearean Section; - Social history: Smoking status: Patient states was never smoker of tobacco. No barriers to communication noted, The patient speaks fluent [place], Speaks appropriately for age. - Family history: Not pertinent. - : The pt / caregiver states he / she is not on anticoagulants. Home medication list is obtained from the patient. - Exposure Risk Screening:: None identified. 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 4 in. (162.56 cm); Pain 0/10; 18:21 BP 143 / 74; Pulse 80; Resp 16; Temp 97.7; Pulse Ox 95% ; Pain 0/10; cjh 14:21 Body Mass Index 38.79 (102.51 kg, 162.56 cm) dem1 MDM: 15:15 Undress patient appropriately for examination ordered. ke 15:15 NS 0.9% 1000 ml IV at 250 mL/hr continuous ordered. ke 15:15 Ondansetron 4 mg IVP once ordered. ke 15:15 pantoprazole 40 mg IV at bolus once ordered. ke 15:16 Amylase Ordered. EDMS 15:16 Basic Metabolic Profile Ordered. EDMS 15:16 CBC with Diff Ordered. EDMS 15:16 Lipase Ordered. EDMS 15:16 Liver Profile Ordered. EDMS 15:16 Prothrombin Time Profile\E\INR Ordered. EDMS 15:16 Urinalysis Ordered. EDMS 15:17 Urine Culture Ordered. EDMS 15:17 Abdomen, Flat\E\Upright,PA Chest Ordered. EDMS 15:17 NOTHING BY MOUTH+DIET ordered. EDMS 15:18 GASTROINTESTINAL (GI) PANEL Ordered. EDMS 16:14 DIFFERENTIAL NO CHARGE Ordered. EDMS 16:14 PLATELET ESTIMATE Ordered. EDMS 16:42 Financial registration complete. gjb 16:58 [facility] Payment Agreement was scanned into [employer] and attached to record. gjb 17:04 Basic Metabolic Profile Reviewed. ke 17:04 CBC with Diff Reviewed. ke 17:04 Liver Profile Reviewed. ke 17:04 Amylase Reviewed. ke 17:04 Lipase Reviewed. ke 17:04 Prothrombin Time Profile\E\INR Reviewed. ke 17:04 Abdomen, Flat\E\Upright,PA Chest Reviewed. ke 17:45 CBC with Diff Reviewed. ke 17:45 Urinalysis Reviewed. ke 17:45 PLATELET ESTIMATE Reviewed. ke 11/25 09:56 T-Sheet-- Draft Copy was scanned into [employer] and attached to record. gb Administered Medications: 11/24 16:15 Drug: Ondansetron 4 mg Route: IVP; Site: left antecubital; [facility] 16:15 Drug: pantoprazole 40 mg [pantoprazole 40 mg intravenous solution] Route: IV; Rate: cjh bolus; Site: left antecubital; 16:16 Drug: NS 0.9% 1000 ml Route: IV; Rate: 250 mL/hr; Site: right antecubital; [facility] 18:23 Follow up: IV Status: Infusion discontinued; IV Intake: 250ml [facility] Signatures: Dispatcher [employer] EDMS Savanah Torres, Reg Reg gb Chon Qiu, TOBY MAKER TOBY MAKER Amalia RondonRN RN ck1 Anahi RussoRN RN [facility] Bibiana Hoffmann The chart was reviewed and I authenticate all verbal orders and agree with the evaluation and treatment provided.Corrections: (The following items were deleted from the chart) 15:18 15:17 GASTROINTESTINAL (GI) PANEL+AZUCENA ordered. EDMS EDMS Attachments: 16:58 [facility] Payment Agreement gj 11/25 09:56 T-Sheet-- Draft Copy MTDD
--- NOTE | 2016-11-27 10:19 | EDDOCDS ---
Physician Documentation [facility] Name: Spring Hamilton Age: 56 yrs Sex: Female : 1960 Arrival Date: 11/24/2016 Time: 14:20 Bed I5 / M5 Private MD: NO PRIMARY PHYSICIAN, . Disposition: 11/24/16 17:56 Discharged to Home/Self Care. Impression: Anemia, unspecified, Urinary tract infection, site not specified, Nausea. - Condition is Stable. - Discharge Instructions: Anemia, Nonspecific, Urinary Tract Infection, [id number]. - Prescriptions for Cipro 500 mg Oral Tablet - take 1 tablet by ORAL route every 12 hours; 14 tablet. Pyridium 200 mg Oral Tablet - take 1 tablet by ORAL route every 8 hours for 3 days; 9 tablet. Zofran 4 mg Oral Tablet - take 1 tablet by ORAL route 4 times per day As needed; 10 tablet. - Medication Reconciliation, Local Pharmacy Hours form. - Follow up: Private Physician; When: 4 - 5 days; Reason: Recheck today's complaints, Continuance of care. - Problem is an ongoing problem. - Symptoms are unchanged. Historical: - Allergies: No known drug Allergies; - Home Meds: 1. pantoprazole 40 mg oral TbEC 1 tab once daily hasn't been taking because she read side effects 2. ibuprofen 800 mg Oral tab as needed (Last dose: Unknown) - PMHx: GERD; - PSHx: Cesearean Section; - Social history: Smoking status: Patient states was never smoker of tobacco. No barriers to communication noted, The patient speaks fluent [place]i, Speaks appropriately for age. - Family history: Not pertinent. - : The pt / caregiver states he / she is not on anticoagulants. Home medication list is obtained from the patient. - Exposure Risk Screening:: None identified. 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 4 in. (162.56 cm); Pain 0/10; 18:21 BP 143 / 74; Pulse 80; Resp 16; Temp 97.7; Pulse Ox 95% ; Pain 0/10; cjh 14:21 Body Mass Index 38.79 (102.51 kg, 162.56 cm) dem1 MDM: 15:15 Undress patient appropriately for examination ordered. ke 15:15 NS 0.9% 1000 ml IV at 250 mL/hr continuous ordered. ke 15:15 Ondansetron 4 mg IVP once ordered. ke 15:15 pantoprazole 40 mg IV at bolus once ordered. ke 15:16 Amylase Ordered. EDMS 15:16 Basic Metabolic Profile Ordered. EDMS 15:16 CBC with Diff Ordered. EDMS 15:16 Lipase Ordered. EDMS 15:16 Liver Profile Ordered. EDMS 15:16 Prothrombin Time Profile\E\INR Ordered. EDMS 15:16 Urinalysis Ordered. EDMS 15:17 Urine Culture Ordered. EDMS 15:17 Abdomen, Flat\E\Upright,PA Chest Ordered. EDMS 15:17 NOTHING BY MOUTH+DIET ordered. EDMS 15:18 GASTROINTESTINAL (GI) PANEL Ordered. EDMS 16:14 DIFFERENTIAL NO CHARGE Ordered. EDMS 16:14 PLATELET ESTIMATE Ordered. EDMS 16:42 Financial registration complete. gjb 16:58 [facility] Payment Agreement was scanned into [employer] and attached to record. gjb 17:04 Basic Metabolic Profile Reviewed. ke 17:04 CBC with Diff Reviewed. ke 17:04 Liver Profile Reviewed. ke 17:04 Amylase Reviewed. ke 17:04 Lipase Reviewed. ke 17:04 Prothrombin Time Profile\E\INR Reviewed. ke 17:04 Abdomen, Flat\E\Upright,PA Chest Reviewed. ke 17:45 CBC with Diff Reviewed. ke 17:45 Urinalysis Reviewed. ke 17:45 PLATELET ESTIMATE Reviewed. ke 11/25 09:56 T-Sheet-- Draft Copy was scanned into [employer] and attached to record. gb Administered Medications: 11/24 16:15 Drug: Ondansetron 4 mg Route: IVP; Site: left antecubital; [facility] 16:15 Drug: pantoprazole 40 mg [pantoprazole 40 mg intravenous solution] Route: IV; Rate: cjh bolus; Site: left antecubital; 16:16 Drug: NS 0.9% 1000 ml Route: IV; Rate: 250 mL/hr; Site: right antecubital; [facility] 18:23 Follow up: IV Status: Infusion discontinued; IV Intake: 250ml [facility] Signatures: Dispatcher [employer] EDMS Savanah Torres, Reg Reg gb Chon Qiu, TIMBER HAND TIMBER HAND Amalia RondonRN RN ck1 Anahi RussoRN RN [facility] Bibiana Hoffmann The chart was reviewed and I authenticate all verbal orders and agree with the evaluation and treatment provided.Corrections: (The following items were deleted from the chart) 15:18 15:17 GASTROINTESTINAL (GI) PANEL+AZUCENA ordered. EDMS EDMS Attachments: 16:58 [facility] Payment Agreement gj 11/25 09:56 T-Sheet-- Draft Copy MTDD
--- NOTE | 2016-11-27 10:19 | EDDOCDS ---
Nurse's Notes [facility] Name: Spring Hamilton Age: 56 yrs Sex: Female : 1960 Arrival Date: 11/24/2016 Time: 14:20 Bed I5 / M5 Private MD: NO PRIMARY PHYSICIAN, . Diagnosis: Anemia, unspecified;Urinary tract infection, site not specified;Nausea Presentation: 11/24 14:32 Presenting complaint: Patient states: "unable to tolerate any food", states immediate ck1 diarrhea after eating, increased weakness, "I feel like I have and unsteady gait". Drinking from [employer] to go cup. Denies pain. Adult Sepsis Screening: The patient does not have new or worsening altered mentation. Patient's respiratory rate is less than 22. Systolic blood pressure is greater than 100. Patient has a qSOFA score of 0- Negative Sepsis Screen. Suicide/Homicide risk assessment- the patient denies having any suicidal and/or homicidal ideations and does not present with any other emotional, behavioral or mental health complaints. Status: Patient is not a services host or dependent. Transition of care: patient was not received from another setting of care. 14:32 Method Of Arrival: Walkin/Carried/Asstd ck1 14:32 Acuity: SALVATORE Level 3 ck1 Triage Assessment: 14:38 General: Appears in no apparent distress, comfortable, Behavior is appropriate for age, ck1 cooperative. Pain: Denies pain. HIV screening NA for this visit Offered previously. Neurological: Level of Consciousness is awake, alert, obeys commands, Oriented to person, place, time. Respiratory: Respiratory effort is unlabored, Respiratory pattern is regular, symmetrical. GI: Reports diarrhea. GI: Reports nausea. Derm: Skin is intact, is healthy with good turgor, Skin is pink, warm & dry. Musculoskeletal: Circulation, motion, and sensation intact Range of motion intact in all extremities. 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 pantoprazole 40 mg oral TbEC 1 tab once daily hasn't been taking because she read side effects 2. ibuprofen 800 mg Oral tab as needed (Last dose: Unknown) - PMHx: GERD; - PSHx: Cesearean Section; - Social history: Smoking status: Patient states was never smoker of tobacco. No barriers to communication noted, The patient speaks fluent Faroese, Speaks appropriately for age. - Family history: Not pertinent. - : The pt / caregiver states he / she is not on anticoagulants. Home medication list is obtained from the patient. - Exposure Risk Screening:: None identified. Screenin:16 Screening information is obtained from the patient. Fall risk: No risks identified. [facility] Assistance ADL's: requires no assistance with activities of daily living. Abuse/DV Screen: The patient / caregiver reports he/she is: not in a situation that causes fear, pain or injury. Nutritional screening: No deficits noted. Advance Directives: There is no active DNR order. home support is adequate. Assessment: 16:16 General: Appears in no apparent distress, comfortable, Behavior is appropriate for age, [facility] cooperative. Respiratory: Airway is patent Respiratory effort is even, unlabored, Respiratory pattern is regular, symmetrical. GI: Abdomen is non- distended Bowel sounds present X 4 quads. Abd is soft Abd is tender to palpation X 4 quads. Reports diarrhea. Derm: Skin is normal. 17:00 General: Appears in no apparent distress, comfortable, Behavior is appropriate for age, [facility] cooperative, warm blankets provided, denies needs at this time. 18:21 General: Appears in no apparent distress, comfortable, Behavior is appropriate for age, [facility] cooperative. General: reports feeling much better, reviewed discharge instructions, encouraged and answered questions, denies further needs. Pain: Denies pain. Vital Signs: 14:21 BP 147 / 77; Pulse 90; Resp 18; Temp 98.6(O); Pulse Ox 100% on R/A; Weight 102.51 kg [facility] (M); Height 5 ft. 4 in. (162.56 cm); Pain 0/10; 18:21 BP 143 / 74; Pulse 80; Resp 16; Temp 97.7; Pulse Ox 95% ; Pain 0/10; h 14:21 Body Mass Index 38.79 (102.51 kg, 162.56 cm) [facility] Vitals: 14:21 Log In Time: November 24, 2016 at 14:15. [facility] ED Course: 14:21 Patient visited by Uriah Harrison. [facility] 14:21 NO PRIMARY PHYSICIAN, . is Private Physician. dem1 14:21 Patient moved to Waiting dem1 14:23 Patient moved to Pre RCE dem1 14:36 Triage Initiated ck1 14:57 Patient moved to Triage 1 ck1 15:08 Chon Qiu FNP [facility]. ke 15:08 Patient visited by Chon Qiu FNP. ke 15:08 Patient visited by Chon Qiu FNP. ke 15:17 Patient moved to I5 / M5 ttb 15:26 Patient visited by Zarina Gorman PCA. jlf 15:47 Patient visited by Chon Qiu FNP. ke 16:11 Patient visited by Zarina Gorman PCA. jlf 16:16 The patient / caregiver is instructed regarding the plan of care and ED course. [facility] 16:16 Abdomen, Flat\\E\\Upright,PA Chest Returned. EDMS 16:16 Inserted saline lock: 20 gauge in right antecubital area and blood collected. The [facility] patient tolerated the procedure well. Labs drawn. (by ED staff). Sent per order to lab. 16:22 Patient visited by Zarina Gorman PCA. jlf 16:41 Patient visited by Zarina Gorman PCA. jlf 16:41 Urinalysis Sent. jlf 16:41 Urine Culture Sent. jlf 16:58 [facility] was scanned into [employer] and attached to record. gjb 17:20 Patient name changed from Spring\\S\\\\S\\Alfonso\\S\\ to Spring\\S\\Ines\\S\\Alfonso. EDMS 17:25 Patient visited by Chon Qiu FNP. ke 18:21 Discontinued lock intact, bleeding controlled, pressure dressing applied, No [facility] redness/swelling at site. No procedures done that require assistance. 11/25 09:56 T-Sheet-- Draft Copy was scanned into [employer] and attached to record. gb Administered Medications: 11/24 16:15 Drug: Ondansetron 4 mg Route: IVP; Site: left antecubital; [facility] 16:15 Drug: pantoprazole 40 mg [pantoprazole 40 mg intravenous solution] Route: IV; Rate: cjh bolus; Site: left antecubital; 16:16 Drug: NS 0.9% 1000 ml Route: IV; Rate: 250 mL/hr; Site: right antecubital; cjh 18:23 Follow up: IV Status: Infusion discontinued; IV Intake: 250ml [facility] Intake: 18:23 IV: 250.00ml; Total: 250.00ml. [facility] Order Results: Lab Order: Amylase; SPEC'M 11/24/16 15:47 Test: AMYLASE; Value: 37; Range: 25-115; Units: U/L; Status: F Lab Order: Basic Metabolic Profile; SPEC' 11/24/16 15:47 Test: GLUCOSE, FASTING; Value: 97; Range: 70-105; Units: MG/DL; Status: F Test: BLOOD UREA NITROGEN; Value: 9; Range: 7-18; Units: MG/DL; Status: F Test: CREATININE FOR GFR; Value: 0.75; Range: 0.55-1.02; Units: MG/DL; Status: F Test: GLOMERULAR FILTRATION RATE; Value: > 60.0; Range: >51; Status: F Test: SODIUM LEVEL; Value: 144; Range: 136-145; Units: MEQ/L; Status: F Test: POTASSIUM SERUM; Value: 3.7; Range: 3.5-5.1; Units: MEQ/L; Status: F Test: CHLORIDE LEVEL; Value: 109; Range: 98-107; Abnormal: Above high normal; Units: MEQ/L; Status: F Test: CARBON DIOXIDE LEVEL; Value: 24; Range: 21-32; Units: MEQ/L; Status: F Test: ANION GAP; Value: 11; Range: 8-16; Units: MEQ/L; Status: F Test: CALCIUM LEVEL; Value: 8.0; Range: 8.5-10.1; Abnormal: Below low normal; Units: MG/DL; Status: F Test Note: ; Units are mL/min/1.73 m2 Chronic Kidney Disease Staging per NKF: Stage I & II GFR >=60 Normal to Mildly Decreased Stage III GFR 30-59 Moderately Decreased Stage IV GFR 15-29 Severely Decreased Stage V GFR <15 Very Little GFR Left ESRD GFR <15 on VOCATIONAL REHABILITATION SUPERVISOR Lab Order: CBC with Diff; SPEC'11/24/16 15:47 Test: WHITE BLOOD COUNT; Value: 4.7; Range: 4.0-10.0; Units: K/mm3; Status: F Test: RED BLOOD COUNT; Value: 2.05; Range: 4.00-5.40; Abnormal: Below low normal; Units: M/mm3; Status: F Test: HEMOGLOBIN; Value: 8.6; Range: 12.0-16.0; Abnormal: Below low normal; Units: g/dl; Status: F Test: HEMATOCRIT; Value: 25.3; Range: 36.0-47.0; Abnormal: Below low normal; Units: %; Status: F Test: MEAN CORPUSCULAR VOLUME; Value: 123.9; Range: 80.0-96.0; Abnormal: Above high normal; Units: fl; Status: F Test: MEAN CORPUSCULAR HEMOGLOBIN; Value: 41.9; Range: 27.0-33.0; Abnormal: Above high normal; Units: pg; Status: F Test: MEAN CORPUSCULAR HGB CONC; Value: 33.8; Range: 32.0-36.5; Units: g/dl; Status: F Test: RED CELL DISTRIBUTION WIDTH; Value: 19.6; Range: 11.5-14.5; Abnormal: Above high normal; Units: %; Status: F Test: PLATELET COUNT, AUTOMATED; Value: 219; Range: 150-450; Units: k/mm3; Status: F Test: PLATELET ESTIMATE; Range: NORMAL; Status: I Test: NEUTROPHILS; Value: 65; Range: 35-75; Units: %; Status: F Test: LYMPHOCYTES; Value: 29; Range: 16-52; Units: %; Status: F Test: MONOCYTES; Value: 1; Range: 0-8; Units: %; Status: F Test: EOSINOPHILS; Value: 4; Range: 0-5; Units: %; Status: F Test: BASOPHILS; Value: 1; Range: 0-4; Units: %; Status: F Test: NUCLEATED RED BLOOD CELL; Value: 2; Range: 0-0; Abnormal: Above high normal; Units: %; Status: F Test: POLYCHROMASIA; Value: 1+; Status: F Test: POIKILOCYTOSIS; Value: 1+; Status: F Test: ANISOCYTOSIS; Value: 2+; Status: F Test: MACROCYTOSIS; Value: 3+; Status: F Test: TEAR DROP CELLS; Value: 1+; Status: F Lab Order: Lipase; SPEC'M 11/24/16 15:47 Test: LIPASE; Value: 116; Range: 73-393; Units: U/L; Status: F Lab Order: Liver Profile; [facility] 11/24/16 15:47 Test: AST/SGOT; Value: 157; Range: 15-37; Abnormal: Above high normal; Units: U/L; Status: F Test: ALT/SGPT; Value: 71; Range: 12-78; Units: U/L; Status: F Test: ALKALINE PHOSPHATASE; Value: 92; Range: 45-117; Units: U/L; Status: F Test: BILIRUBIN,TOTAL; Value: 2.6; Range: 0.2-1.0; Abnormal: Above high normal; Units: MG/DL; Status: F Test: BILIRUBIN,DIRECT; Value: 0.4; Range: 0.0-0.2; Abnormal: Above high normal; Units: MG/DL; Status: F Test: TOTAL PROTEIN; Value: 7.4; Range: 6.4-8.2; Units: GM/DL; Status: F Test: ALBUMIN; Value: 3.8; Range: 3.2-5.2; Units: GM/DL; Status: F Test: ALBUMIN/GLOBULIN RATIO; Value: 1.06; Range: 1.00-1.93; Status: F Lab Order: Prothrombin Time Profile\\E\\INR; [facility] 11/24/16 15:47 Test: PROTHROMBIN TIME; Value: 13.8; Range: 12.3-14.5; Units: SECONDS; Status: F Test: INR; Value: 1.05; Status: F Test Note: ; THERAPUTIC HUMAN INR VALUES INDICATIONS NORMAL RANGES PROPHYLAXIS/TREATMENT OF: VENOUS THROMBOSIS 2.0-3.0 PULMONARY EMBOLISM 2.0-3.0 PREVENTION OF SYSTEMIC EMBOLISM FROM: TISSUE HEART VALVES 2.0-3.0 ACUTE MYOCARDIAL INFARCTION 2.0-3.0 VALVULAR HEART DISEASE 2.0-3.0 ATRIAL FIBRILLATION 2.0-3.0 MECHANICAL VALVES(HIGH RISK) 2.5-3.5 RECURRENT MYOCARDIAL INFARCTION 2.5-3.5 Lab Order: Urinalysis; [facility] 11/24/16 16:36 Test: APPEARANCE, URINE; Value: CLEAR; Range: CLEAR; Status: F Test: COLOR, URINE; Value: DILLON; Range: YELLOW; Status: F Test: PH,URINE; Value: 6.0; Range: 5.0-9.0; Units: UNITS; Status: F Test: SPECIFIC GRAVITY URINE AUTO; Value: 1.019; Range: 1.002-1.035; Status: F Test: PROTEIN, URINE AUTO; Value: 1+; Range: NEGATIVE; Abnormal: Above high normal; Units: mg/dL; Status: F Test: GLUCOSE, URINE (UA) AUTO; Value: NEGATIVE; Range: NEGATIVE; Units: mg/dL; Status: F Test: KETONE, URINE AUTO; Value: TRACE; Range: NEGATIVE; Abnormal: Above high normal; Units: mg/dL; Status: F Test: UROBILINOGEN, URINE AUTO; Value: 4.0; Range: 0.0-2.0; Abnormal: Above high normal; Units: mg/dL; Status: F Test: BILIRUBIN, URINE AUTO; Value: 1+; Range: NEGATIVE; Abnormal: Above high normal; Status: F Test: NITRITE, URINE AUTO; Value: NEGATIVE; Range: NEGATIVE; Status: F Test: LEUKOCYTE ESTERASE, URINE AUTO; Value: 3+; Range: NEGATIVE; Abnormal: Above high normal; Status: F Test: BLOOD, URINE BLOOD; Value: 1+; Range: NEGATIVE; Abnormal: Above high normal; Status: F Test: WBC, URINE AUTO; Value: TNTC; Range: 0-3; Abnormal: Above high normal; Units: /HPF; Status: F Test: RBC, URINE AUTO; Value: 7; Range: 0-3; Abnormal: Above high normal; Units: /HPF; Status: F Test: BACTERIA, URINE AUTO; Value: 3+; Range: NEGATIVE; Abnormal: Above high normal; Status: F Test: SQUAMOUS EPITHELIAL CELL UR AU; Value: 1; Range: 0-6; Units: /HPF; Status: F Test: MUCUS, URINE; Value: LARGE; Range: NEGATIVE; Status: F Test: HYALINE CAST, URINE AUTO; Value: 5; Range: 0-1; Units: /LPF; Status: F Test: AMORPHOUS SEDIMENT; Value: SMALL; Range: NEGATIVE; Abnormal: Above high normal; Status: F Lab Order: Urine Culture; SPEC'M 11/24/16 16:35 Test: URINE CULTURE; Value: <EXTERNAL COMMENT eCWMed> FULL REPORT IN LAB NOTES (eCW and Medent).; Status: F Test: URINE CULTURE; Value: ORGANISM 1: ESCHERICHIA COLI; Status: F Test: URINE CULTURE; Value: ESCHERICHIA COLI; Status: F Test: URINE CULTURE; Value: COLONY COUNT CFU/ml >100,000; Status: F Test: URINE CULTURE; Value: GRAM NEG SENSI - VITEK 80; Status: F Test: URINE CULTURE; Value: Method: VIT2; Status: F Test: URINE CULTURE; Value: EXTD BRD SPCTRM BETA LACTAMASE -; Status: F Test: URINE CULTURE; Value: TRIMETHOPRIM/SULFAMETHOXAZOLE <=20 S; Status: F Test: URINE CULTURE; Value: AMPICILLIN >=32 R; Status: F Test: URINE CULTURE; Value: GENTAMICIN <=1 S; Status: F Test: URINE CULTURE; Value: NITROFURANTOIN <=16 S; Status: F Test: URINE CULTURE; Value: CEFAZOLIN <=4 S; Status: F Test: URINE CULTURE; Value: LEVOFLOXACIN >=8 R; Status: F Test: URINE CULTURE; Value: TOBRAMYCIN <=1 S; Status: F Test: URINE CULTURE; Value: CEFTRIAXONE <=1 S; Status: F Test: URINE CULTURE; Value: CEFTAZIDIME <=1 S; Status: F Test: URINE CULTURE; Value: AMPICILLIN/SULBACTAM >=32 R; Status: F Test: URINE CULTURE; Value: PIPERACILLIN/TAZOBACTAM <=4 S; Status: F Test: URINE CULTURE; Value: AZTREONAM <=1 S; Status: F Test: URINE CULTURE; Value: ERTAPENEM <=0.5 S; Status: F Test: URINE CULTURE; Value: MEROPENEM <=0.25 S; Status: F Test: URINE CULTURE; Value: TIGECYCLINE <=0.5 S; Status: F Test: URINE CULTURE; Value: CEFEPIME <=1 S; Status: F Lab Order: PLATELET ESTIMATE; SPEC'M 11/24/16 15:47 Test: PLATELET ESTIMATE; Value: NORMAL; Range: NORMAL; Status: F Radiology Order: Abdomen, Flat\\E\\Upright,PA Chest Test: Abdomen, Flat\\E\\Upright,PA Chest REASON FOR EXAMINATION: Abdomen Pain; ABDOMEN AND FLAT UPRIGHT PA CHEST, THREE VIEWS:; ; HISTORY: Abdominal pain.; ; A small amount of air is present in small and large intestine. There are no air; fluid levels or dilated loops of intestine. There is no pneumoperitoneum. A 10; mm calcification is present in the left lateral abdomen. The lungs are clear.; ; IMPRESSION:; ; Nonspecific bowel gas pattern.; ; ; Signed by; Suleiman Colon MD 11/24/2016 04:05 P; Outcome: 17:56 Discharge ordered by Provider. dariana 18:21 Discharge Assessment: Patient awake, alert and oriented x 3. No cognitive and/or [facility] functional deficits noted. Patient verbalized understanding of disposition instructions. patient administered narcotics - no. The following High Risk Discharge criteria are identified: None. Discharged to home ambulatory, with family. Condition: good Condition: stable Condition: improved. Discharge instructions given to patient, Instructed on discharge instructions, follow up and referral plans. medication usage, Demonstrated understanding of instructions, medications, Pt was receptive of discharge instructions/ teaching. Prescriptions given X 4. No special radiology studies were completed. Property :Personal belongings accompany Pt. 18:24 Patient left the ED. [facility] Addendum: 11/27/2016 10:16 Narrative: Urine culture results reviewed with Dr. Melchor and Rx changed to Macrobid kcs 100 mg po BID x 10 days. Message left for patient to call us so we can call Rx into her pharmacy. Signatures: Dispatcher [employer] Yuko Hernandez, RN RN Savanah Sam, Reg Reg gb Chon Qiu, OPTOMETRY ASSISTANT OPTOMETRY ASSISTANT Amalia RondonRN TALIA [email or web address] Uriah Harrison Jane, RN RN [facility] Heidi Pat RN RN ttb For[place], Jordain, LACHO FULLERETTE Bibiana Anand MTDD
--- NOTE | 2016-11-27 10:20 | EDDOCDS ---
Physician Documentation [facility] Name: Spring Hamilton Age: 56 yrs Sex: Female : 1960 Arrival Date: 11/24/2016 Time: 14:20 Bed I5 / M5 Private MD: NO PRIMARY PHYSICIAN, . Disposition: 11/24/16 17:56 Discharged to Home/Self Care. Impression: Anemia, unspecified, Urinary tract infection, site not specified, Nausea. - Condition is Stable. - Discharge Instructions: Anemia, Nonspecific, Urinary Tract Infection, [id number]. - Prescriptions for Cipro 500 mg Oral Tablet - take 1 tablet by ORAL route every 12 hours; 14 tablet. Pyridium 200 mg Oral Tablet - take 1 tablet by ORAL route every 8 hours for 3 days; 9 tablet. Zofran 4 mg Oral Tablet - take 1 tablet by ORAL route 4 times per day As needed; 10 tablet. - Medication Reconciliation, Local Pharmacy Hours form. - Follow up: Private Physician; When: 4 - 5 days; Reason: Recheck today's complaints, Continuance of care. - Problem is an ongoing problem. - Symptoms are unchanged. Historical: - Allergies: No known drug Allergies; - Home Meds: 1. pantoprazole 40 mg oral TbEC 1 tab once daily hasn't been taking because she read side effects 2. ibuprofen 800 mg Oral tab as needed (Last dose: Unknown) - PMHx: GERD; - PSHx: Cesearean Section; - Social history: Smoking status: Patient states was never smoker of tobacco. No barriers to communication noted, The patient speaks fluent [place], Speaks appropriately for age. - Family history: Not pertinent. - : The pt / caregiver states he / she is not on anticoagulants. Home medication list is obtained from the patient. - Exposure Risk Screening:: None identified. 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 4 in. (162.56 cm); Pain 0/10; 18:21 BP 143 / 74; Pulse 80; Resp 16; Temp 97.7; Pulse Ox 95% ; Pain 0/10; cjh 14:21 Body Mass Index 38.79 (102.51 kg, 162.56 cm) dem1 MDM: 15:15 Undress patient appropriately for examination ordered. ke 15:15 NS 0.9% 1000 ml IV at 250 mL/hr continuous ordered. ke 15:15 Ondansetron 4 mg IVP once ordered. ke 15:15 pantoprazole 40 mg IV at bolus once ordered. ke 15:16 Amylase Ordered. EDMS 15:16 Basic Metabolic Profile Ordered. EDMS 15:16 CBC with Diff Ordered. EDMS 15:16 Lipase Ordered. EDMS 15:16 Liver Profile Ordered. EDMS 15:16 Prothrombin Time Profile\E\INR Ordered. EDMS 15:16 Urinalysis Ordered. EDMS 15:17 Urine Culture Ordered. EDMS 15:17 Abdomen, Flat\E\Upright,PA Chest Ordered. EDMS 15:17 NOTHING BY MOUTH+DIET ordered. EDMS 15:18 GASTROINTESTINAL (GI) PANEL Ordered. EDMS 16:14 DIFFERENTIAL NO CHARGE Ordered. EDMS 16:14 PLATELET ESTIMATE Ordered. EDMS 16:42 Financial registration complete. gjb 16:58 [facility] Payment Agreement was scanned into [employer] and attached to record. gjb 17:04 Basic Metabolic Profile Reviewed. ke 17:04 CBC with Diff Reviewed. ke 17:04 Liver Profile Reviewed. ke 17:04 Amylase Reviewed. ke 17:04 Lipase Reviewed. ke 17:04 Prothrombin Time Profile\E\INR Reviewed. ke 17:04 Abdomen, Flat\E\Upright,PA Chest Reviewed. ke 17:45 CBC with Diff Reviewed. ke 17:45 Urinalysis Reviewed. ke 17:45 PLATELET ESTIMATE Reviewed. ke 11/25 09:56 T-Sheet-- Draft Copy was scanned into [employer] and attached to record. gb Administered Medications: 11/24 16:15 Drug: Ondansetron 4 mg Route: IVP; Site: left antecubital; [facility] 16:15 Drug: pantoprazole 40 mg [pantoprazole 40 mg intravenous solution] Route: IV; Rate: cjh bolus; Site: left antecubital; 16:16 Drug: NS 0.9% 1000 ml Route: IV; Rate: 250 mL/hr; Site: right antecubital; [facility] 18:23 Follow up: IV Status: Infusion discontinued; IV Intake: 250ml [facility] Signatures: Dispatcher [employer] EDMS Savanah Torres, Reg Reg gb Chon Qiu, ELECTRIC MOTOR AND GENERATOR ASSEMBLER ELECTRIC MOTOR AND GENERATOR ASSEMBLER Amalia RondonRN RN ck1 Anahi RussoRN RN [facility] Bibiana Hoffmann The chart was reviewed and I authenticate all verbal orders and agree with the evaluation and treatment provided.Corrections: (The following items were deleted from the chart) 15:18 15:17 GASTROINTESTINAL (GI) PANEL+AZUCENA ordered. EDMS EDMS Attachments: 16:58 [facility] Payment Agreement [facility] 11/25 09:56 T-Sheet-- Draft Copy Chart Complete MTDD
--- NOTE | 2016-11-27 10:20 | EDDOCDS ---
Nurse's Notes [facility] Name: Spring Hamilton Age: 56 yrs Sex: Female : 1960 Arrival Date: 11/24/2016 Time: 14:20 Bed I5 / M5 Private MD: NO PRIMARY PHYSICIAN, . Diagnosis: Anemia, unspecified;Urinary tract infection, site not specified;Nausea Presentation: 11/24 14:32 Presenting complaint: Patient states: "unable to tolerate any food", states immediate ck1 diarrhea after eating, increased weakness, "I feel like I have and unsteady gait". Drinking from [employer] to go cup. Denies pain. Adult Sepsis Screening: The patient does not have new or worsening altered mentation. Patient's respiratory rate is less than 22. Systolic blood pressure is greater than 100. Patient has a qSOFA score of 0- Negative Sepsis Screen. Suicide/Homicide risk assessment- the patient denies having any suicidal and/or homicidal ideations and does not present with any other emotional, behavioral or mental health complaints. 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 Transition of care: patient was not received from another setting of care. 14:32 Method Of Arrival: Walkin/Carried/Asstd ck1 14:32 Acuity: SALVATORE Level 3 ck1 Triage Assessment: 14:38 General: Appears in no apparent distress, comfortable, Behavior is appropriate for age, ck1 cooperative. Pain: Denies pain. HIV screening NA for this visit Offered previously. Neurological: Level of Consciousness is awake, alert, obeys commands, Oriented to person, place, time. Respiratory: Respiratory effort is unlabored, Respiratory pattern is regular, symmetrical. GI: Reports diarrhea. GI: Reports nausea. Derm: Skin is intact, is healthy with good turgor, Skin is pink, warm & dry. Musculoskeletal: Circulation, motion, and sensation intact Range of motion intact in all extremities. 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 pantoprazole 40 mg oral TbEC 1 tab once daily hasn't been taking because she read side effects 2. ibuprofen 800 mg Oral tab as needed (Last dose: Unknown) - PMHx: GERD; - PSHx: Cesearean Section; - Social history: Smoking status: Patient states was never smoker of tobacco. No barriers to communication noted, The patient speaks fluent Trinidadian, Speaks appropriately for age. - Family history: Not pertinent. - : The pt / caregiver states he / she is not on anticoagulants. Home medication list is obtained from the patient. - Exposure Risk Screening:: None identified. Screenin:16 Screening information is obtained from the patient. Fall risk: No risks identified. [facility] Assistance ADL's: requires no assistance with activities of daily living. Abuse/DV Screen: The patient / caregiver reports he/she is: not in a situation that causes fear, pain or injury. Nutritional screening: No deficits noted. Advance Directives: There is no active DNR order. home support is adequate. Assessment: 16:16 General: Appears in no apparent distress, comfortable, Behavior is appropriate for age, [facility] cooperative. Respiratory: Airway is patent Respiratory effort is even, unlabored, Respiratory pattern is regular, symmetrical. GI: Abdomen is non- distended Bowel sounds present X 4 quads. Abd is soft Abd is tender to palpation X 4 quads. Reports diarrhea. Derm: Skin is normal. 17:00 General: Appears in no apparent distress, comfortable, Behavior is appropriate for age, [facility] cooperative, warm blankets provided, denies needs at this time. 18:21 General: Appears in no apparent distress, comfortable, Behavior is appropriate for age, [facility] cooperative. General: reports feeling much better, reviewed discharge instructions, encouraged and answered questions, denies further needs. Pain: Denies pain. Vital Signs: 14:21 BP 147 / 77; Pulse 90; Resp 18; Temp 98.6(O); Pulse Ox 100% on R/A; Weight 102.51 kg [facility] (M); Height 5 ft. 4 in. (162.56 cm); Pain 0/10; 18:21 BP 143 / 74; Pulse 80; Resp 16; Temp 97.7; Pulse Ox 95% ; Pain 0/10; h 14:21 Body Mass Index 38.79 (102.51 kg, 162.56 cm) [facility] Vitals: 14:21 Log In Time: November 24, 2016 at 14:15. [facility] ED Course: 14:21 Patient visited by Uriah Harrison. [facility] 14:21 NO PRIMARY PHYSICIAN, . is Private Physician. dem1 14:21 Patient moved to Waiting dem1 14:23 Patient moved to Pre RCE dem1 14:36 Triage Initiated ck1 14:57 Patient moved to Triage 1 ck1 15:08 [facility] ke 15:08 Patient visited by Chon Qiu FNP. ke 15:08 Patient visited by Chon Qiu FNP. ke 15:17 Patient moved to I5 / M5 ttb 15:26 Patient visited by Zarina Gorman PCA. jlf 15:47 Patient visited by Chon Qiu FNP. ke 16:11 Patient visited by Zarina Gorman PCA. jlf 16:16 The patient / caregiver is instructed regarding the plan of care and ED course. [facility] 16:16 Abdomen, Flat\\E\\Upright,PA Chest Returned. EDMS 16:16 Inserted saline lock: 20 gauge in right antecubital area and blood collected. The [facility] patient tolerated the procedure well. Labs drawn. (by ED staff). Sent per order to lab. 16:22 Patient visited by Zarina Gorman PCA. jlf 16:41 Patient visited by Zarina Gorman PCA. jlf 16:41 Urinalysis Sent. jlf 16:41 Urine Culture Sent. jlf 16:58 [facility] was scanned into [employer] and attached to record. gjb 17:20 Patient name changed from Spring\\S\\\\S\\Alfonso\\S\\ to Spring\\S\\Ines\\S\\Alfonso. EDMS 17:25 Patient visited by Chon Qiu FNP. ke 18:21 Discontinued lock intact, bleeding controlled, pressure dressing applied, No [facility] redness/swelling at site. No procedures done that require assistance. 11/25 09:56 T-Sheet-- Draft Copy was scanned into [employer] and attached to record. gb Administered Medications: 11/24 16:15 Drug: Ondansetron 4 mg Route: IVP; Site: left antecubital; [facility] 16:15 Drug: pantoprazole 40 mg [pantoprazole 40 mg intravenous solution] Route: IV; Rate: cjh bolus; Site: left antecubital; 16:16 Drug: NS 0.9% 1000 ml Route: IV; Rate: 250 mL/hr; Site: right antecubital; cjh 18:23 Follow up: IV Status: Infusion discontinued; IV Intake: 250ml [facility] Intake: 18:23 IV: 250.00ml; Total: 250.00ml. [facility] Order Results: Lab Order: Amylase; SPEC'M 11/24/16 15:47 Test: AMYLASE; Value: 37; Range: 25-115; Units: U/L; Status: F Lab Order: Basic Metabolic Profile; SPEC' 11/24/16 15:47 Test: GLUCOSE, FASTING; Value: 97; Range: 70-105; Units: MG/DL; Status: F Test: BLOOD UREA NITROGEN; Value: 9; Range: 7-18; Units: MG/DL; Status: F Test: CREATININE FOR GFR; Value: 0.75; Range: 0.55-1.02; Units: MG/DL; Status: F Test: GLOMERULAR FILTRATION RATE; Value: > 60.0; Range: >51; Status: F Test: SODIUM LEVEL; Value: 144; Range: 136-145; Units: MEQ/L; Status: F Test: POTASSIUM SERUM; Value: 3.7; Range: 3.5-5.1; Units: MEQ/L; Status: F Test: CHLORIDE LEVEL; Value: 109; Range: 98-107; Abnormal: Above high normal; Units: MEQ/L; Status: F Test: CARBON DIOXIDE LEVEL; Value: 24; Range: 21-32; Units: MEQ/L; Status: F Test: ANION GAP; Value: 11; Range: 8-16; Units: MEQ/L; Status: F Test: CALCIUM LEVEL; Value: 8.0; Range: 8.5-10.1; Abnormal: Below low normal; Units: MG/DL; Status: F Test Note: ; Units are mL/min/1.73 m2 Chronic Kidney Disease Staging per NKF: Stage I & II GFR >=60 Normal to Mildly Decreased Stage III GFR 30-59 Moderately Decreased Stage IV GFR 15-29 Severely Decreased Stage V GFR <15 Very Little GFR Left ESRD GFR <15 on ORTHODONTIC LABORATORY TECHNICIAN Lab Order: CBC with Diff; SPEC'11/24/16 15:47 Test: WHITE BLOOD COUNT; Value: 4.7; Range: 4.0-10.0; Units: K/mm3; Status: F Test: RED BLOOD COUNT; Value: 2.05; Range: 4.00-5.40; Abnormal: Below low normal; Units: M/mm3; Status: F Test: HEMOGLOBIN; Value: 8.6; Range: 12.0-16.0; Abnormal: Below low normal; Units: g/dl; Status: F Test: HEMATOCRIT; Value: 25.3; Range: 36.0-47.0; Abnormal: Below low normal; Units: %; Status: F Test: MEAN CORPUSCULAR VOLUME; Value: 123.9; Range: 80.0-96.0; Abnormal: Above high normal; Units: fl; Status: F Test: MEAN CORPUSCULAR HEMOGLOBIN; Value: 41.9; Range: 27.0-33.0; Abnormal: Above high normal; Units: pg; Status: F Test: MEAN CORPUSCULAR HGB CONC; Value: 33.8; Range: 32.0-36.5; Units: g/dl; Status: F Test: RED CELL DISTRIBUTION WIDTH; Value: 19.6; Range: 11.5-14.5; Abnormal: Above high normal; Units: %; Status: F Test: PLATELET COUNT, AUTOMATED; Value: 219; Range: 150-450; Units: k/mm3; Status: F Test: PLATELET ESTIMATE; Range: NORMAL; Status: I Test: NEUTROPHILS; Value: 65; Range: 35-75; Units: %; Status: F Test: LYMPHOCYTES; Value: 29; Range: 16-52; Units: %; Status: F Test: MONOCYTES; Value: 1; Range: 0-8; Units: %; Status: F Test: EOSINOPHILS; Value: 4; Range: 0-5; Units: %; Status: F Test: BASOPHILS; Value: 1; Range: 0-4; Units: %; Status: F Test: NUCLEATED RED BLOOD CELL; Value: 2; Range: 0-0; Abnormal: Above high normal; Units: %; Status: F Test: POLYCHROMASIA; Value: 1+; Status: F Test: POIKILOCYTOSIS; Value: 1+; Status: F Test: ANISOCYTOSIS; Value: 2+; Status: F Test: MACROCYTOSIS; Value: 3+; Status: F Test: TEAR DROP CELLS; Value: 1+; Status: F Lab Order: Lipase; SPEC'M 11/24/16 15:47 Test: LIPASE; Value: 116; Range: 73-393; Units: U/L; Status: F Lab Order: Liver Profile; [facility] 11/24/16 15:47 Test: AST/SGOT; Value: 157; Range: 15-37; Abnormal: Above high normal; Units: U/L; Status: F Test: ALT/SGPT; Value: 71; Range: 12-78; Units: U/L; Status: F Test: ALKALINE PHOSPHATASE; Value: 92; Range: 45-117; Units: U/L; Status: F Test: BILIRUBIN,TOTAL; Value: 2.6; Range: 0.2-1.0; Abnormal: Above high normal; Units: MG/DL; Status: F Test: BILIRUBIN,DIRECT; Value: 0.4; Range: 0.0-0.2; Abnormal: Above high normal; Units: MG/DL; Status: F Test: TOTAL PROTEIN; Value: 7.4; Range: 6.4-8.2; Units: GM/DL; Status: F Test: ALBUMIN; Value: 3.8; Range: 3.2-5.2; Units: GM/DL; Status: F Test: ALBUMIN/GLOBULIN RATIO; Value: 1.06; Range: 1.00-1.93; Status: F Lab Order: Prothrombin Time Profile\\E\\INR; [facility] 11/24/16 15:47 Test: PROTHROMBIN TIME; Value: 13.8; Range: 12.3-14.5; Units: SECONDS; Status: F Test: INR; Value: 1.05; Status: F Test Note: ; THERAPUTIC HUMAN INR VALUES INDICATIONS NORMAL RANGES PROPHYLAXIS/TREATMENT OF: VENOUS THROMBOSIS 2.0-3.0 PULMONARY EMBOLISM 2.0-3.0 PREVENTION OF SYSTEMIC EMBOLISM FROM: TISSUE HEART VALVES 2.0-3.0 ACUTE MYOCARDIAL INFARCTION 2.0-3.0 VALVULAR HEART DISEASE 2.0-3.0 ATRIAL FIBRILLATION 2.0-3.0 MECHANICAL VALVES(HIGH RISK) 2.5-3.5 RECURRENT MYOCARDIAL INFARCTION 2.5-3.5 Lab Order: Urinalysis; [facility] 11/24/16 16:36 Test: APPEARANCE, URINE; Value: CLEAR; Range: CLEAR; Status: F Test: COLOR, URINE; Value: DILLON; Range: YELLOW; Status: F Test: PH,URINE; Value: 6.0; Range: 5.0-9.0; Units: UNITS; Status: F Test: SPECIFIC GRAVITY URINE AUTO; Value: 1.019; Range: 1.002-1.035; Status: F Test: PROTEIN, URINE AUTO; Value: 1+; Range: NEGATIVE; Abnormal: Above high normal; Units: mg/dL; Status: F Test: GLUCOSE, URINE (UA) AUTO; Value: NEGATIVE; Range: NEGATIVE; Units: mg/dL; Status: F Test: KETONE, URINE AUTO; Value: TRACE; Range: NEGATIVE; Abnormal: Above high normal; Units: mg/dL; Status: F Test: UROBILINOGEN, URINE AUTO; Value: 4.0; Range: 0.0-2.0; Abnormal: Above high normal; Units: mg/dL; Status: F Test: BILIRUBIN, URINE AUTO; Value: 1+; Range: NEGATIVE; Abnormal: Above high normal; Status: F Test: NITRITE, URINE AUTO; Value: NEGATIVE; Range: NEGATIVE; Status: F Test: LEUKOCYTE ESTERASE, URINE AUTO; Value: 3+; Range: NEGATIVE; Abnormal: Above high normal; Status: F Test: BLOOD, URINE BLOOD; Value: 1+; Range: NEGATIVE; Abnormal: Above high normal; Status: F Test: WBC, URINE AUTO; Value: TNTC; Range: 0-3; Abnormal: Above high normal; Units: /HPF; Status: F Test: RBC, URINE AUTO; Value: 7; Range: 0-3; Abnormal: Above high normal; Units: /HPF; Status: F Test: BACTERIA, URINE AUTO; Value: 3+; Range: NEGATIVE; Abnormal: Above high normal; Status: F Test: SQUAMOUS EPITHELIAL CELL UR AU; Value: 1; Range: 0-6; Units: /HPF; Status: F Test: MUCUS, URINE; Value: LARGE; Range: NEGATIVE; Status: F Test: HYALINE CAST, URINE AUTO; Value: 5; Range: 0-1; Units: /LPF; Status: F Test: AMORPHOUS SEDIMENT; Value: SMALL; Range: NEGATIVE; Abnormal: Above high normal; Status: F Lab Order: Urine Culture; SPEC'M 11/24/16 16:35 Test: URINE CULTURE; Value: <EXTERNAL COMMENT eCWMed> FULL REPORT IN LAB NOTES (eCW and Medent).; Status: F Test: URINE CULTURE; Value: ORGANISM 1: ESCHERICHIA COLI; Status: F Test: URINE CULTURE; Value: ESCHERICHIA COLI; Status: F Test: URINE CULTURE; Value: COLONY COUNT CFU/ml >100,000; Status: F Test: URINE CULTURE; Value: GRAM NEG SENSI - VITEK 80; Status: F Test: URINE CULTURE; Value: Method: VIT2; Status: F Test: URINE CULTURE; Value: EXTD BRD SPCTRM BETA LACTAMASE -; Status: F Test: URINE CULTURE; Value: TRIMETHOPRIM/SULFAMETHOXAZOLE <=20 S; Status: F Test: URINE CULTURE; Value: AMPICILLIN >=32 R; Status: F Test: URINE CULTURE; Value: GENTAMICIN <=1 S; Status: F Test: URINE CULTURE; Value: NITROFURANTOIN <=16 S; Status: F Test: URINE CULTURE; Value: CEFAZOLIN <=4 S; Status: F Test: URINE CULTURE; Value: LEVOFLOXACIN >=8 R; Status: F Test: URINE CULTURE; Value: TOBRAMYCIN <=1 S; Status: F Test: URINE CULTURE; Value: CEFTRIAXONE <=1 S; Status: F Test: URINE CULTURE; Value: CEFTAZIDIME <=1 S; Status: F Test: URINE CULTURE; Value: AMPICILLIN/SULBACTAM >=32 R; Status: F Test: URINE CULTURE; Value: PIPERACILLIN/TAZOBACTAM <=4 S; Status: F Test: URINE CULTURE; Value: AZTREONAM <=1 S; Status: F Test: URINE CULTURE; Value: ERTAPENEM <=0.5 S; Status: F Test: URINE CULTURE; Value: MEROPENEM <=0.25 S; Status: F Test: URINE CULTURE; Value: TIGECYCLINE <=0.5 S; Status: F Test: URINE CULTURE; Value: CEFEPIME <=1 S; Status: F Lab Order: PLATELET ESTIMATE; SPEC'M 11/24/16 15:47 Test: PLATELET ESTIMATE; Value: NORMAL; Range: NORMAL; Status: F Radiology Order: Abdomen, Flat\\E\\Upright,PA Chest Test: Abdomen, Flat\\E\\Upright,PA Chest REASON FOR EXAMINATION: Abdomen Pain; ABDOMEN AND FLAT UPRIGHT PA CHEST, THREE VIEWS:; ; HISTORY: Abdominal pain.; ; A small amount of air is present in small and large intestine. There are no air; fluid levels or dilated loops of intestine. There is no pneumoperitoneum. A 10; mm calcification is present in the left lateral abdomen. The lungs are clear.; ; IMPRESSION:; ; Nonspecific bowel gas pattern.; ; ; Signed by; Suleiman Colon MD 11/24/2016 04:05 P; Outcome: 17:56 Discharge ordered by Provider. dariana 18:21 Discharge Assessment: Patient awake, alert and oriented x 3. No cognitive and/or [facility] functional deficits noted. Patient verbalized understanding of disposition instructions. patient administered narcotics - no. The following High Risk Discharge criteria are identified: None. Discharged to home ambulatory, with family. Condition: good Condition: stable Condition: improved. Discharge instructions given to patient, Instructed on discharge instructions, follow up and referral plans. medication usage, Demonstrated understanding of instructions, medications, Pt was receptive of discharge instructions/ teaching. Prescriptions given X 4. No special radiology studies were completed. Property :Personal belongings accompany Pt. 18:24 Patient left the ED. [facility] Addendum: 11/27/2016 10:16 Narrative: Urine culture results reviewed with Dr. Melchor and Rx changed to Macrobid kcs 100 mg po BID x 10 days. Message left for patient to call us so we can call Rx into her pharmacy. Signatures: Dispatcher [employer] Yuko Hernandez, RN RN Savanah Sam, Reg Reg gb Chon Qiu, DIRECTOR CORRECTIONAL AGENCY DIRECTOR CORRECTIONAL AGENCY Amalia RondonRN TALIA [email or web address] Uriah Harrison Jane, RN RN [facility] Heidi Pat RN RN ttb Forney, Jordain, [employer] RECREATION COORDINATOR Bibiana Anand Chart Complete MTDD
--- NOTE | 2016-11-27 10:20 | EDDOCDS ---
Physician Documentation [facility] Name: Spring Hamilton Age: 56 yrs Sex: Female : 1960 Arrival Date: 11/24/2016 Time: 14:20 Bed I5 / M5 Private MD: NO PRIMARY PHYSICIAN, . Disposition: 11/24/16 17:56 Discharged to Home/Self Care. Impression: Anemia, unspecified, Urinary tract infection, site not specified, Nausea. - Condition is Stable. - Discharge Instructions: Anemia, Nonspecific, Urinary Tract Infection, Mric-ma-Igyf. - Prescriptions for Cipro 500 mg Oral Tablet - take 1 tablet by ORAL route every 12 hours; 14 tablet. Pyridium 200 mg Oral Tablet - take 1 tablet by ORAL route every 8 hours for 3 days; 9 tablet. Zofran 4 mg Oral Tablet - take 1 tablet by ORAL route 4 times per day As needed; 10 tablet. - Medication Reconciliation, Local Pharmacy Hours form. - Follow up: Private Physician; When: 4 - 5 days; Reason: Recheck today's complaints, Continuance of care. - Problem is an ongoing problem. - Symptoms are unchanged. Historical: - Allergies: No known drug Allergies; - Home Meds: 1. pantoprazole 40 mg oral TbEC 1 tab once daily hasn't been taking because she read side effects 2. ibuprofen 800 mg Oral tab as needed (Last dose: Unknown) - PMHx: GERD; - PSHx: Cesearean Section; - Social history: Smoking status: Patient states was never smoker of tobacco. No barriers to communication noted, The patient speaks fluent Luxembourger, Speaks appropriately for age. - Family history: Not pertinent. - : The pt / caregiver states he / she is not on anticoagulants. Home medication list is obtained from the patient. - Exposure Risk Screening:: None identified. DOG SHOW JUDGE: 11/24 14:39 LMP N/A - Post-menopause ck1 Vital Signs: 14:21 BP 147 / 77; Pulse 90; Resp 18; Temp 98.6(O); Pulse Ox 100% on R/A; Weight 102.51 kg / dem1 226 lbs (M); Height 5 ft. 4 in. (162.56 cm); Pain 0/10; 18:21 BP 143 / 74; Pulse 80; Resp 16; Temp 97.7; Pulse Ox 95% ; Pain 0/10; cjh 14:21 Body Mass Index 38.79 (102.51 kg, 162.56 cm) dem1 MDM: 15:15 Undress patient appropriately for examination ordered. ke 15:15 NS 0.9% 1000 ml IV at 250 mL/hr continuous ordered. ke 15:15 Ondansetron 4 mg IVP once ordered. ke 15:15 pantoprazole 40 mg IV at bolus once ordered. ke 15:16 Amylase Ordered. EDMS 15:16 Basic Metabolic Profile Ordered. EDMS 15:16 CBC with Diff Ordered. EDMS 15:16 Lipase Ordered. EDMS 15:16 Liver Profile Ordered. EDMS 15:16 Prothrombin Time Profile\E\INR Ordered. EDMS 15:16 Urinalysis Ordered. EDMS 15:17 Urine Culture Ordered. EDMS 15:17 Abdomen, Flat\E\Upright,PA Chest Ordered. EDMS 15:17 NOTHING BY MOUTH+DIET ordered. EDMS 15:18 GASTROINTESTINAL (GI) PANEL Ordered. EDMS 16:14 DIFFERENTIAL NO CHARGE Ordered. EDMS 16:14 PLATELET ESTIMATE Ordered. EDMS 16:42 Financial registration complete. gjb 16:58 [facility] Payment Agreement was scanned into [employer] and attached to record. gjb 17:04 Basic Metabolic Profile Reviewed. ke 17:04 CBC with Diff Reviewed. ke 17:04 Liver Profile Reviewed. ke 17:04 Amylase Reviewed. ke 17:04 Lipase Reviewed. ke 17:04 Prothrombin Time Profile\E\INR Reviewed. ke 17:04 Abdomen, Flat\E\Upright,PA Chest Reviewed. ke 17:45 CBC with Diff Reviewed. ke 17:45 Urinalysis Reviewed. ke 17:45 PLATELET ESTIMATE Reviewed. ke 11/25 09:56 T-Sheet-- Draft Copy was scanned into [employer] and attached to record. gb Administered Medications: 11/24 16:15 Drug: Ondansetron 4 mg Route: IVP; Site: left antecubital; [facility] 16:15 Drug: pantoprazole 40 mg [pantoprazole 40 mg intravenous solution] Route: IV; Rate: cjh bolus; Site: left antecubital; 16:16 Drug: NS 0.9% 1000 ml Route: IV; Rate: 250 mL/hr; Site: right antecubital; [facility] 18:23 Follow up: IV Status: Infusion discontinued; IV Intake: 250ml [facility] Signatures: Dispatcher [employer] EDMS Savanah Torres, Reg Reg gb Chon Qiu, CAR FRAMER CAR FRAMER Amalia RondonRN RN ck1 Anahi RussoRN RN [facility] Bibiana Hoffmann The chart was reviewed and I authenticate all verbal orders and agree with the evaluation and treatment provided.Corrections: (The following items were deleted from the chart) 15:18 15:17 GASTROINTESTINAL (GI) PANEL+AZUCENA ordered. EDMS EDMS Attachments: 16:58 [facility] Payment Agreement [facility] 11/25 09:56 T-Sheet-- Draft Copy Chart Complete MTDD
--- NOTE | 2016-11-27 10:56 | EDDOCDS ---
Nurse's Notes [facility] Name: Spring Hamilton Age: 56 yrs Sex: Female : 1960 Arrival Date: 11/24/2016 Time: 14:20 Bed I5 / M5 Private MD: NO PRIMARY PHYSICIAN, . Diagnosis: Anemia, unspecified;Urinary tract infection, site not specified;Nausea Presentation: 11/24 14:32 Presenting complaint: Patient states: "unable to tolerate any food", states immediate ck1 diarrhea after eating, increased weakness, "I feel like I have and unsteady gait". Drinking from [employer] to go cup. Denies pain. Adult Sepsis Screening: The patient does not have new or worsening altered mentation. Patient's respiratory rate is less than 22. Systolic blood pressure is greater than 100. Patient has a qSOFA score of 0- Negative Sepsis Screen. Suicide/Homicide risk assessment- the patient denies having any suicidal and/or homicidal ideations and does not present with any other emotional, behavioral or mental health complaints. Status: Patient is not a tax services intern or dependent. Transition of care: patient was not received from another setting of care. 14:32 Method Of Arrival: Walkin/Carried/Asstd ck1 14:32 Acuity: SALVATORE Level 3 ck1 Triage Assessment: 14:38 General: Appears in no apparent distress, comfortable, Behavior is appropriate for age, ck1 cooperative. Pain: Denies pain. HIV screening NA for this visit Offered previously. Neurological: Level of Consciousness is awake, alert, obeys commands, Oriented to person, place, time. Respiratory: Respiratory effort is unlabored, Respiratory pattern is regular, symmetrical. GI: Reports diarrhea. GI: Reports nausea. Derm: Skin is intact, is healthy with good turgor, Skin is pink, warm & dry. Musculoskeletal: Circulation, motion, and sensation intact Range of motion intact in all extremities. CONCRETE ENGINEER: 14:39 LMP N/A - Post-menopause ck1 Historical: - Allergies: No known drug Allergies; - Home Meds: 1. pantoprazole 40 mg oral TbEC 1 tab once daily hasn't been taking because she read side effects 2. ibuprofen 800 mg Oral tab as needed (Last dose: Unknown) - PMHx: GERD; - PSHx: Cesearean Section; - Social history: Smoking status: Patient states was never smoker of tobacco. No barriers to communication noted, The patient speaks fluent Tunisian, Speaks appropriately for age. - Family history: Not pertinent. - : The pt / caregiver states he / she is not on anticoagulants. Home medication list is obtained from the patient. - Exposure Risk Screening:: None identified. Screenin:16 Screening information is obtained from the patient. Fall risk: No risks identified. [facility] Assistance ADL's: requires no assistance with activities of daily living. Abuse/DV Screen: The patient / caregiver reports he/she is: not in a situation that causes fear, pain or injury. Nutritional screening: No deficits noted. Advance Directives: There is no active DNR order. home support is adequate. Assessment: 16:16 General: Appears in no apparent distress, comfortable, Behavior is appropriate for age, [facility] cooperative. Respiratory: Airway is patent Respiratory effort is even, unlabored, Respiratory pattern is regular, symmetrical. GI: Abdomen is non- distended Bowel sounds present X 4 quads. Abd is soft Abd is tender to palpation X 4 quads. Reports diarrhea. Derm: Skin is normal. 17:00 General: Appears in no apparent distress, comfortable, Behavior is appropriate for age, [facility] cooperative, warm blankets provided, denies needs at this time. 18:21 General: Appears in no apparent distress, comfortable, Behavior is appropriate for age, [facility] cooperative. General: reports feeling much better, reviewed discharge instructions, encouraged and answered questions, denies further needs. Pain: Denies pain. Vital Signs: 14:21 BP 147 / 77; Pulse 90; Resp 18; Temp 98.6(O); Pulse Ox 100% on R/A; Weight 102.51 kg [facility] (M); Height 5 ft. 4 in. (162.56 cm); Pain 0/10; 18:21 BP 143 / 74; Pulse 80; Resp 16; Temp 97.7; Pulse Ox 95% ; Pain 0/10; h 14:21 Body Mass Index 38.79 (102.51 kg, 162.56 cm) [facility] Vitals: 14:21 Log In Time: November 24, 2016 at 14:15. [facility] ED Course: 14:21 Patient visited by Uriah Harrison. [facility] 14:21 NO PRIMARY PHYSICIAN, . is Private Physician. dem1 14:21 Patient moved to Waiting dem1 14:23 Patient moved to Pre RCE dem1 14:36 Triage Initiated ck1 14:57 Patient moved to Triage 1 ck1 15:08 [facility] ke 15:08 Patient visited by Chon Qiu FNP. ke 15:08 Patient visited by Chon Qiu FNP. ke 15:17 Patient moved to I5 / M5 ttb 15:26 Patient visited by Zarina Gorman PCA. jlf 15:47 Patient visited by Chon Qiu FNP. ke 16:11 Patient visited by Zarina Gorman PCA. jlf 16:16 The patient / caregiver is instructed regarding the plan of care and ED course. [facility] 16:16 Abdomen, Flat\\E\\Upright,PA Chest Returned. EDMS 16:16 Inserted saline lock: 20 gauge in right antecubital area and blood collected. The [facility] patient tolerated the procedure well. Labs drawn. (by ED staff). Sent per order to lab. 16:22 Patient visited by Zarina Gorman PCA. jlf 16:41 Patient visited by Zarina Gorman PCA. jlf 16:41 Urinalysis Sent. jlf 16:41 Urine Culture Sent. jlf 16:58 [facility] Payment Agreement was scanned into [employer] and attached to record. gjb 17:20 Patient name changed from Spring\\S\\\\S\\Alfonso\\S\\ to Spring\\S\\Ines\\S\\Alfonso. EDMS 17:25 Patient visited by Chon Qiu FNP. ke 18:21 Discontinued lock intact, bleeding controlled, pressure dressing applied, No [facility] redness/swelling at site. No procedures done that require assistance. 11/25 09:56 T-Sheet-- Draft Copy was scanned into [employer] and attached to record. gb Administered Medications: 11/24 16:15 Drug: Ondansetron 4 mg Route: IVP; Site: left antecubital; [facility] 16:15 Drug: pantoprazole 40 mg [pantoprazole 40 mg intravenous solution] Route: IV; Rate: cjh bolus; Site: left antecubital; 16:16 Drug: NS 0.9% 1000 ml Route: IV; Rate: 250 mL/hr; Site: right antecubital; cjh 18:23 Follow up: IV Status: Infusion discontinued; IV Intake: 250ml [facility] Intake: 18:23 IV: 250.00ml; Total: 250.00ml. [facility] Order Results: Lab Order: Amylase; SPEC'M 11/24/16 15:47 Test: AMYLASE; Value: 37; Range: 25-115; Units: U/L; Status: F Lab Order: Basic Metabolic Profile; SPEC' 11/24/16 15:47 Test: GLUCOSE, FASTING; Value: 97; Range: 70-105; Units: MG/DL; Status: F Test: BLOOD UREA NITROGEN; Value: 9; Range: 7-18; Units: MG/DL; Status: F Test: CREATININE FOR GFR; Value: 0.75; Range: 0.55-1.02; Units: MG/DL; Status: F Test: GLOMERULAR FILTRATION RATE; Value: > 60.0; Range: >51; Status: F Test: SODIUM LEVEL; Value: 144; Range: 136-145; Units: MEQ/L; Status: F Test: POTASSIUM SERUM; Value: 3.7; Range: 3.5-5.1; Units: MEQ/L; Status: F Test: CHLORIDE LEVEL; Value: 109; Range: 98-107; Abnormal: Above high normal; Units: MEQ/L; Status: F Test: CARBON DIOXIDE LEVEL; Value: 24; Range: 21-32; Units: MEQ/L; Status: F Test: ANION GAP; Value: 11; Range: 8-16; Units: MEQ/L; Status: F Test: CALCIUM LEVEL; Value: 8.0; Range: 8.5-10.1; Abnormal: Below low normal; Units: MG/DL; Status: F Test Note: ; Units are mL/min/1.73 m2 Chronic Kidney Disease Staging per NKF: Stage I & II GFR >=60 Normal to Mildly Decreased Stage III GFR 30-59 Moderately Decreased Stage IV GFR 15-29 Severely Decreased Stage V GFR <15 Very Little GFR Left ESRD GFR <15 on SPIKE MACHINE FEEDER Lab Order: CBC with Diff; SPEC'11/24/16 15:47 Test: WHITE BLOOD COUNT; Value: 4.7; Range: 4.0-10.0; Units: K/mm3; Status: F Test: RED BLOOD COUNT; Value: 2.05; Range: 4.00-5.40; Abnormal: Below low normal; Units: M/mm3; Status: F Test: HEMOGLOBIN; Value: 8.6; Range: 12.0-16.0; Abnormal: Below low normal; Units: g/dl; Status: F Test: HEMATOCRIT; Value: 25.3; Range: 36.0-47.0; Abnormal: Below low normal; Units: %; Status: F Test: MEAN CORPUSCULAR VOLUME; Value: 123.9; Range: 80.0-96.0; Abnormal: Above high normal; Units: fl; Status: F Test: MEAN CORPUSCULAR HEMOGLOBIN; Value: 41.9; Range: 27.0-33.0; Abnormal: Above high normal; Units: pg; Status: F Test: MEAN CORPUSCULAR HGB CONC; Value: 33.8; Range: 32.0-36.5; Units: g/dl; Status: F Test: RED CELL DISTRIBUTION WIDTH; Value: 19.6; Range: 11.5-14.5; Abnormal: Above high normal; Units: %; Status: F Test: PLATELET COUNT, AUTOMATED; Value: 219; Range: 150-450; Units: k/mm3; Status: F Test: PLATELET ESTIMATE; Range: NORMAL; Status: I Test: NEUTROPHILS; Value: 65; Range: 35-75; Units: %; Status: F Test: LYMPHOCYTES; Value: 29; Range: 16-52; Units: %; Status: F Test: MONOCYTES; Value: 1; Range: 0-8; Units: %; Status: F Test: EOSINOPHILS; Value: 4; Range: 0-5; Units: %; Status: F Test: BASOPHILS; Value: 1; Range: 0-4; Units: %; Status: F Test: NUCLEATED RED BLOOD CELL; Value: 2; Range: 0-0; Abnormal: Above high normal; Units: %; Status: F Test: POLYCHROMASIA; Value: 1+; Status: F Test: POIKILOCYTOSIS; Value: 1+; Status: F Test: ANISOCYTOSIS; Value: 2+; Status: F Test: MACROCYTOSIS; Value: 3+; Status: F Test: TEAR DROP CELLS; Value: 1+; Status: F Lab Order: Lipase; SPEC'M 11/24/16 15:47 Test: LIPASE; Value: 116; Range: 73-393; Units: U/L; Status: F Lab Order: Liver Profile; [facility] 11/24/16 15:47 Test: AST/SGOT; Value: 157; Range: 15-37; Abnormal: Above high normal; Units: U/L; Status: F Test: ALT/SGPT; Value: 71; Range: 12-78; Units: U/L; Status: F Test: ALKALINE PHOSPHATASE; Value: 92; Range: 45-117; Units: U/L; Status: F Test: BILIRUBIN,TOTAL; Value: 2.6; Range: 0.2-1.0; Abnormal: Above high normal; Units: MG/DL; Status: F Test: BILIRUBIN,DIRECT; Value: 0.4; Range: 0.0-0.2; Abnormal: Above high normal; Units: MG/DL; Status: F Test: TOTAL PROTEIN; Value: 7.4; Range: 6.4-8.2; Units: GM/DL; Status: F Test: ALBUMIN; Value: 3.8; Range: 3.2-5.2; Units: GM/DL; Status: F Test: ALBUMIN/GLOBULIN RATIO; Value: 1.06; Range: 1.00-1.93; Status: F Lab Order: Prothrombin Time Profile\\E\\INR; [facility] 11/24/16 15:47 Test: PROTHROMBIN TIME; Value: 13.8; Range: 12.3-14.5; Units: SECONDS; Status: F Test: INR; Value: 1.05; Status: F Test Note: ; THERAPUTIC HUMAN INR VALUES INDICATIONS NORMAL RANGES PROPHYLAXIS/TREATMENT OF: VENOUS THROMBOSIS 2.0-3.0 PULMONARY EMBOLISM 2.0-3.0 PREVENTION OF SYSTEMIC EMBOLISM FROM: TISSUE HEART VALVES 2.0-3.0 ACUTE MYOCARDIAL INFARCTION 2.0-3.0 VALVULAR HEART DISEASE 2.0-3.0 ATRIAL FIBRILLATION 2.0-3.0 MECHANICAL VALVES(HIGH RISK) 2.5-3.5 RECURRENT MYOCARDIAL INFARCTION 2.5-3.5 Lab Order: Urinalysis; [facility] 11/24/16 16:36 Test: APPEARANCE, URINE; Value: CLEAR; Range: CLEAR; Status: F Test: COLOR, URINE; Value: DILLON; Range: YELLOW; Status: F Test: PH,URINE; Value: 6.0; Range: 5.0-9.0; Units: UNITS; Status: F Test: SPECIFIC GRAVITY URINE AUTO; Value: 1.019; Range: 1.002-1.035; Status: F Test: PROTEIN, URINE AUTO; Value: 1+; Range: NEGATIVE; Abnormal: Above high normal; Units: mg/dL; Status: F Test: GLUCOSE, URINE (UA) AUTO; Value: NEGATIVE; Range: NEGATIVE; Units: mg/dL; Status: F Test: KETONE, URINE AUTO; Value: TRACE; Range: NEGATIVE; Abnormal: Above high normal; Units: mg/dL; Status: F Test: UROBILINOGEN, URINE AUTO; Value: 4.0; Range: 0.0-2.0; Abnormal: Above high normal; Units: mg/dL; Status: F Test: BILIRUBIN, URINE AUTO; Value: 1+; Range: NEGATIVE; Abnormal: Above high normal; Status: F Test: NITRITE, URINE AUTO; Value: NEGATIVE; Range: NEGATIVE; Status: F Test: LEUKOCYTE ESTERASE, URINE AUTO; Value: 3+; Range: NEGATIVE; Abnormal: Above high normal; Status: F Test: BLOOD, URINE BLOOD; Value: 1+; Range: NEGATIVE; Abnormal: Above high normal; Status: F Test: WBC, URINE AUTO; Value: TNTC; Range: 0-3; Abnormal: Above high normal; Units: /HPF; Status: F Test: RBC, URINE AUTO; Value: 7; Range: 0-3; Abnormal: Above high normal; Units: /HPF; Status: F Test: BACTERIA, URINE AUTO; Value: 3+; Range: NEGATIVE; Abnormal: Above high normal; Status: F Test: SQUAMOUS EPITHELIAL CELL UR AU; Value: 1; Range: 0-6; Units: /HPF; Status: F Test: MUCUS, URINE; Value: LARGE; Range: NEGATIVE; Status: F Test: HYALINE CAST, URINE AUTO; Value: 5; Range: 0-1; Units: /LPF; Status: F Test: AMORPHOUS SEDIMENT; Value: SMALL; Range: NEGATIVE; Abnormal: Above high normal; Status: F Lab Order: Urine Culture; SPEC'M 11/24/16 16:35 Test: URINE CULTURE; Value: <EXTERNAL COMMENT eCWMed> FULL REPORT IN LAB NOTES (eCW and Medent).; Status: F Test: URINE CULTURE; Value: ORGANISM 1: ESCHERICHIA COLI; Status: F Test: URINE CULTURE; Value: ESCHERICHIA COLI; Status: F Test: URINE CULTURE; Value: COLONY COUNT CFU/ml >100,000; Status: F Test: URINE CULTURE; Value: GRAM NEG SENSI - VITEK 80; Status: F Test: URINE CULTURE; Value: Method: VIT2; Status: F Test: URINE CULTURE; Value: EXTD BRD SPCTRM BETA LACTAMASE -; Status: F Test: URINE CULTURE; Value: TRIMETHOPRIM/SULFAMETHOXAZOLE <=20 S; Status: F Test: URINE CULTURE; Value: AMPICILLIN >=32 R; Status: F Test: URINE CULTURE; Value: GENTAMICIN <=1 S; Status: F Test: URINE CULTURE; Value: NITROFURANTOIN <=16 S; Status: F Test: URINE CULTURE; Value: CEFAZOLIN <=4 S; Status: F Test: URINE CULTURE; Value: LEVOFLOXACIN >=8 R; Status: F Test: URINE CULTURE; Value: TOBRAMYCIN <=1 S; Status: F Test: URINE CULTURE; Value: CEFTRIAXONE <=1 S; Status: F Test: URINE CULTURE; Value: CEFTAZIDIME <=1 S; Status: F Test: URINE CULTURE; Value: AMPICILLIN/SULBACTAM >=32 R; Status: F Test: URINE CULTURE; Value: PIPERACILLIN/TAZOBACTAM <=4 S; Status: F Test: URINE CULTURE; Value: AZTREONAM <=1 S; Status: F Test: URINE CULTURE; Value: ERTAPENEM <=0.5 S; Status: F Test: URINE CULTURE; Value: MEROPENEM <=0.25 S; Status: F Test: URINE CULTURE; Value: TIGECYCLINE <=0.5 S; Status: F Test: URINE CULTURE; Value: CEFEPIME <=1 S; Status: F Lab Order: PLATELET ESTIMATE; SPEC'M 11/24/16 15:47 Test: PLATELET ESTIMATE; Value: NORMAL; Range: NORMAL; Status: F Radiology Order: Abdomen, Flat\\E\\Upright,PA Chest Test: Abdomen, Flat\\E\\Upright,PA Chest REASON FOR EXAMINATION: Abdomen Pain; ABDOMEN AND FLAT UPRIGHT PA CHEST, THREE VIEWS:; ; HISTORY: Abdominal pain.; ; A small amount of air is present in small and large intestine. There are no air; fluid levels or dilated loops of intestine. There is no pneumoperitoneum. A 10; mm calcification is present in the left lateral abdomen. The lungs are clear.; ; IMPRESSION:; ; Nonspecific bowel gas pattern.; ; ; Signed by; Suleiman Colon MD 11/24/2016 04:05 P; Outcome: 17:56 Discharge ordered by Provider. dariana 18:21 Discharge Assessment: Patient awake, alert and oriented x 3. No cognitive and/or [facility] functional deficits noted. Patient verbalized understanding of disposition instructions. patient administered narcotics - no. The following High Risk Discharge criteria are identified: None. Discharged to home ambulatory, with family. Condition: good Condition: stable Condition: improved. Discharge instructions given to patient, Instructed on discharge instructions, follow up and referral plans. medication usage, Demonstrated understanding of instructions, medications, Pt was receptive of discharge instructions/ teaching. Prescriptions given X 4. No special radiology studies were completed. Property :Personal belongings accompany Pt. 18:24 Patient left the ED. [facility] Addendum: 11/27/2016 10:16 Narrative: Urine culture results reviewed with Dr. Melchor and Rx changed to Macrobid kcs 100 mg po BID x 10 days. Message left for patient to call us so we can call Rx into her pharmacy. 10:54 Narrative: Patient called back and given results - requests [facility] on [address]. kcs Rx called in. Signatures: Dispatcher [employer] EDMS Yuko Gillis RN RN Savanah Sam, Reg Reg Chon Collazo, SUPERVISOR HOME RESTORATION SERVICE SUPERVISOR HOME RESTORATION SERVICE Amalia RondonRN RN [email or web address] Uriah Harrison Jane, RN RN [facility] Heidi Pat RN RN ttb For[place], Jordain, Bibiana Sofia MTDD
--- NOTE | 2016-11-27 10:56 | EDDOCDS ---
Physician Documentation [facility] Name: Spring Hamilton Age: 56 yrs Sex: Female : 1960 Arrival Date: 11/24/2016 Time: 14:20 Bed I5 / M5 Private MD: NO PRIMARY PHYSICIAN, . Disposition: 11/24/16 17:56 Discharged to Home/Self Care. Impression: Anemia, unspecified, Urinary tract infection, site not specified, Nausea. - Condition is Stable. - Discharge Instructions: Anemia, Nonspecific, Urinary Tract Infection, Qyss-rv-Cbus. - Prescriptions for Cipro 500 mg Oral Tablet - take 1 tablet by ORAL route every 12 hours; 14 tablet. Pyridium 200 mg Oral Tablet - take 1 tablet by ORAL route every 8 hours for 3 days; 9 tablet. Zofran 4 mg Oral Tablet - take 1 tablet by ORAL route 4 times per day As needed; 10 tablet. - Medication Reconciliation, Local Pharmacy Hours form. - Follow up: Private Physician; When: 4 - 5 days; Reason: Recheck today's complaints, Continuance of care. - Problem is an ongoing problem. - Symptoms are unchanged. Historical: - Allergies: No known drug Allergies; - Home Meds: 1. pantoprazole 40 mg oral TbEC 1 tab once daily hasn't been taking because she read side effects 2. ibuprofen 800 mg Oral tab as needed (Last dose: Unknown) - PMHx: GERD; - PSHx: Cesearean Section; - Social history: Smoking status: Patient states was never smoker of tobacco. No barriers to communication noted, The patient speaks fluent Namibian, Speaks appropriately for age. - Family history: Not pertinent. - : The pt / caregiver states he / she is not on anticoagulants. Home medication list is obtained from the patient. - Exposure Risk Screening:: None identified. 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 4 in. (162.56 cm); Pain 0/10; 18:21 BP 143 / 74; Pulse 80; Resp 16; Temp 97.7; Pulse Ox 95% ; Pain 0/10; cjh 14:21 Body Mass Index 38.79 (102.51 kg, 162.56 cm) dem1 MDM: 15:15 Undress patient appropriately for examination ordered. ke 15:15 NS 0.9% 1000 ml IV at 250 mL/hr continuous ordered. ke 15:15 Ondansetron 4 mg IVP once ordered. ke 15:15 pantoprazole 40 mg IV at bolus once ordered. ke 15:16 Amylase Ordered. EDMS 15:16 Basic Metabolic Profile Ordered. EDMS 15:16 CBC with Diff Ordered. EDMS 15:16 Lipase Ordered. EDMS 15:16 Liver Profile Ordered. EDMS 15:16 Prothrombin Time Profile\E\INR Ordered. EDMS 15:16 Urinalysis Ordered. EDMS 15:17 Urine Culture Ordered. EDMS 15:17 Abdomen, Flat\E\Upright,PA Chest Ordered. EDMS 15:17 NOTHING BY MOUTH+DIET ordered. EDMS 15:18 GASTROINTESTINAL (GI) PANEL Ordered. EDMS 16:14 DIFFERENTIAL NO CHARGE Ordered. EDMS 16:14 PLATELET ESTIMATE Ordered. EDMS 16:42 Financial registration complete. gjb 16:58 [facility] Payment Agreement was scanned into [employer] and attached to record. gjb 17:04 Basic Metabolic Profile Reviewed. ke 17:04 CBC with Diff Reviewed. ke 17:04 Liver Profile Reviewed. ke 17:04 Amylase Reviewed. ke 17:04 Lipase Reviewed. ke 17:04 Prothrombin Time Profile\E\INR Reviewed. ke 17:04 Abdomen, Flat\E\Upright,PA Chest Reviewed. ke 17:45 CBC with Diff Reviewed. ke 17:45 Urinalysis Reviewed. ke 17:45 PLATELET ESTIMATE Reviewed. ke 11/25 09:56 T-Sheet-- Draft Copy was scanned into [employer] and attached to record. gb Administered Medications: 11/24 16:15 Drug: Ondansetron 4 mg Route: IVP; Site: left antecubital; [facility] 16:15 Drug: pantoprazole 40 mg [pantoprazole 40 mg intravenous solution] Route: IV; Rate: cjh bolus; Site: left antecubital; 16:16 Drug: NS 0.9% 1000 ml Route: IV; Rate: 250 mL/hr; Site: right antecubital; [facility] 18:23 Follow up: IV Status: Infusion discontinued; IV Intake: 250ml [facility] Signatures: Dispatcher [employer] EDMS Savanah Torres, Reg Reg gb Chon Qiu, VEHICLE FUEL SYSTEMS CONVERTER VEHICLE FUEL SYSTEMS CONVERTER Amalia RondonRN RN ck1 Anahi RussoRN RN [facility] Bibiana Hoffmann The chart was reviewed and I authenticate all verbal orders and agree with the evaluation and treatment provided.Corrections: (The following items were deleted from the chart) 15:18 15:17 GASTROINTESTINAL (GI) PANEL+AZUCENA ordered. EDMS EDMS Attachments: 16:58 [facility] Payment Agreement gj 11/25 09:56 T-Sheet-- Draft Copy MTDD
--- NOTE | 2016-11-27 10:56 | EDDOCDS ---
Physician Documentation [facility] Name: Spring Hamilton Age: 56 yrs Sex: Female : 1960 Arrival Date: 11/24/2016 Time: 14:20 Bed I5 / M5 Private MD: NO PRIMARY PHYSICIAN, . Disposition: 11/24/16 17:56 Discharged to Home/Self Care. Impression: Anemia, unspecified, Urinary tract infection, site not specified, Nausea. - Condition is Stable. - Discharge Instructions: Anemia, Nonspecific, Urinary Tract Infection, [id number]. - Prescriptions for Cipro 500 mg Oral Tablet - take 1 tablet by ORAL route every 12 hours; 14 tablet. Pyridium 200 mg Oral Tablet - take 1 tablet by ORAL route every 8 hours for 3 days; 9 tablet. Zofran 4 mg Oral Tablet - take 1 tablet by ORAL route 4 times per day As needed; 10 tablet. - Medication Reconciliation, Local Pharmacy Hours form. - Follow up: Private Physician; When: 4 - 5 days; Reason: Recheck today's complaints, Continuance of care. - Problem is an ongoing problem. - Symptoms are unchanged. Historical: - Allergies: No known drug Allergies; - Home Meds: 1. pantoprazole 40 mg oral TbEC 1 tab once daily hasn't been taking because she read side effects 2. ibuprofen 800 mg Oral tab as needed (Last dose: Unknown) - PMHx: GERD; - PSHx: Cesearean Section; - Social history: Smoking status: Patient states was never smoker of tobacco. No barriers to communication noted, The patient speaks fluent Hong Konger, Speaks appropriately for age. - Family history: Not pertinent. - : The pt / caregiver states he / she is not on anticoagulants. Home medication list is obtained from the patient. - Exposure Risk Screening:: None identified. CDL PROGRAM COORDINATOR: 11/24 14:39 LMP N/A - Post-menopause ck1 Vital Signs: 14:21 BP 147 / 77; Pulse 90; Resp 18; Temp 98.6(O); Pulse Ox 100% on R/A; Weight 102.51 kg / dem1 226 lbs (M); Height 5 ft. 4 in. (162.56 cm); Pain 0/10; 18:21 BP 143 / 74; Pulse 80; Resp 16; Temp 97.7; Pulse Ox 95% ; Pain 0/10; cjh 14:21 Body Mass Index 38.79 (102.51 kg, 162.56 cm) dem1 MDM: 15:15 Undress patient appropriately for examination ordered. ke 15:15 NS 0.9% 1000 ml IV at 250 mL/hr continuous ordered. ke 15:15 Ondansetron 4 mg IVP once ordered. ke 15:15 pantoprazole 40 mg IV at bolus once ordered. ke 15:16 Amylase Ordered. EDMS 15:16 Basic Metabolic Profile Ordered. EDMS 15:16 CBC with Diff Ordered. EDMS 15:16 Lipase Ordered. EDMS 15:16 Liver Profile Ordered. EDMS 15:16 Prothrombin Time Profile\E\INR Ordered. EDMS 15:16 Urinalysis Ordered. EDMS 15:17 Urine Culture Ordered. EDMS 15:17 Abdomen, Flat\E\Upright,PA Chest Ordered. EDMS 15:17 NOTHING BY MOUTH+DIET ordered. EDMS 15:18 GASTROINTESTINAL (GI) PANEL Ordered. EDMS 16:14 DIFFERENTIAL NO CHARGE Ordered. EDMS 16:14 PLATELET ESTIMATE Ordered. EDMS 16:42 Financial registration complete. gjb 16:58 [facility] Payment Agreement was scanned into [employer] and attached to record. gjb 17:04 Basic Metabolic Profile Reviewed. ke 17:04 CBC with Diff Reviewed. ke 17:04 Liver Profile Reviewed. ke 17:04 Amylase Reviewed. ke 17:04 Lipase Reviewed. ke 17:04 Prothrombin Time Profile\E\INR Reviewed. ke 17:04 Abdomen, Flat\E\Upright,PA Chest Reviewed. ke 17:45 CBC with Diff Reviewed. ke 17:45 Urinalysis Reviewed. ke 17:45 PLATELET ESTIMATE Reviewed. ke 11/25 09:56 T-Sheet-- Draft Copy was scanned into [employer] and attached to record. gb Administered Medications: 11/24 16:15 Drug: Ondansetron 4 mg Route: IVP; Site: left antecubital; [facility] 16:15 Drug: pantoprazole 40 mg [pantoprazole 40 mg intravenous solution] Route: IV; Rate: cjh bolus; Site: left antecubital; 16:16 Drug: NS 0.9% 1000 ml Route: IV; Rate: 250 mL/hr; Site: right antecubital; [facility] 18:23 Follow up: IV Status: Infusion discontinued; IV Intake: 250ml [facility] Signatures: Dispatcher [employer] EDMS Savanah Torres, Reg Reg gb Chon Qiu, AUDIO VISUAL SECRETARY AUDIO VISUAL SECRETARY Amalia RondonRN RN ck1 Anahi RussoRN RN [facility] Bibiana Hoffmann The chart was reviewed and I authenticate all verbal orders and agree with the evaluation and treatment provided.Corrections: (The following items were deleted from the chart) 15:18 15:17 GASTROINTESTINAL (GI) PANEL+AZUCENA ordered. EDMS EDMS Attachments: 16:58 [facility] Payment Agreement gj 11/25 09:56 T-Sheet-- Draft Copy MTDD
--- NOTE | 2016-11-27 10:57 | EDDOCDS ---
Physician Documentation [facility] Name: Spring Hamilton Age: 56 yrs Sex: Female : 1960 Arrival Date: 11/24/2016 Time: 14:20 Bed I5 / M5 Private MD: NO PRIMARY PHYSICIAN, . Disposition: 11/24/16 17:56 Discharged to Home/Self Care. Impression: Anemia, unspecified, Urinary tract infection, site not specified, Nausea. - Condition is Stable. - Discharge Instructions: Anemia, Nonspecific, Urinary Tract Infection, [id number]. - Prescriptions for Cipro 500 mg Oral Tablet - take 1 tablet by ORAL route every 12 hours; 14 tablet. Pyridium 200 mg Oral Tablet - take 1 tablet by ORAL route every 8 hours for 3 days; 9 tablet. Zofran 4 mg Oral Tablet - take 1 tablet by ORAL route 4 times per day As needed; 10 tablet. - Medication Reconciliation, Local Pharmacy Hours form. - Follow up: Private Physician; When: 4 - 5 days; Reason: Recheck today's complaints, Continuance of care. - Problem is an ongoing problem. - Symptoms are unchanged. Historical: - Allergies: No known drug Allergies; - Home Meds: 1. pantoprazole 40 mg oral TbEC 1 tab once daily hasn't been taking because she read side effects 2. ibuprofen 800 mg Oral tab as needed (Last dose: Unknown) - PMHx: GERD; - PSHx: Cesearean Section; - Social history: Smoking status: Patient states was never smoker of tobacco. No barriers to communication noted, The patient speaks fluent Maltese, Speaks appropriately for age. - Family history: Not pertinent. - : The pt / caregiver states he / she is not on anticoagulants. Home medication list is obtained from the patient. - Exposure Risk Screening:: None identified. 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 4 in. (162.56 cm); Pain 0/10; 18:21 BP 143 / 74; Pulse 80; Resp 16; Temp 97.7; Pulse Ox 95% ; Pain 0/10; cjh 14:21 Body Mass Index 38.79 (102.51 kg, 162.56 cm) dem1 MDM: 15:15 Undress patient appropriately for examination ordered. ke 15:15 NS 0.9% 1000 ml IV at 250 mL/hr continuous ordered. ke 15:15 Ondansetron 4 mg IVP once ordered. ke 15:15 pantoprazole 40 mg IV at bolus once ordered. ke 15:16 Amylase Ordered. EDMS 15:16 Basic Metabolic Profile Ordered. EDMS 15:16 CBC with Diff Ordered. EDMS 15:16 Lipase Ordered. EDMS 15:16 Liver Profile Ordered. EDMS 15:16 Prothrombin Time Profile\E\INR Ordered. EDMS 15:16 Urinalysis Ordered. EDMS 15:17 Urine Culture Ordered. EDMS 15:17 Abdomen, Flat\E\Upright,PA Chest Ordered. EDMS 15:17 NOTHING BY MOUTH+DIET ordered. EDMS 15:18 GASTROINTESTINAL (GI) PANEL Ordered. EDMS 16:14 DIFFERENTIAL NO CHARGE Ordered. EDMS 16:14 PLATELET ESTIMATE Ordered. EDMS 16:42 Financial registration complete. gjb 16:58 [facility] Payment Agreement was scanned into [employer] and attached to record. gjb 17:04 Basic Metabolic Profile Reviewed. ke 17:04 CBC with Diff Reviewed. ke 17:04 Liver Profile Reviewed. ke 17:04 Amylase Reviewed. ke 17:04 Lipase Reviewed. ke 17:04 Prothrombin Time Profile\E\INR Reviewed. ke 17:04 Abdomen, Flat\E\Upright,PA Chest Reviewed. ke 17:45 CBC with Diff Reviewed. ke 17:45 Urinalysis Reviewed. ke 17:45 PLATELET ESTIMATE Reviewed. ke 11/25 09:56 T-Sheet-- Draft Copy was scanned into [employer] and attached to record. gb Administered Medications: 11/24 16:15 Drug: Ondansetron 4 mg Route: IVP; Site: left antecubital; [facility] 16:15 Drug: pantoprazole 40 mg [pantoprazole 40 mg intravenous solution] Route: IV; Rate: cjh bolus; Site: left antecubital; 16:16 Drug: NS 0.9% 1000 ml Route: IV; Rate: 250 mL/hr; Site: right antecubital; [facility] 18:23 Follow up: IV Status: Infusion discontinued; IV Intake: 250ml [facility] Signatures: Dispatcher [employer] EDMS Savanah Torres, Reg Reg gb Chon Qiu, HOUSEHOLD WORKER HOUSEHOLD WORKER Amalia RondonRN RN ck1 Anahi RussoRN RN [facility] Bibiana Hoffmann The chart was reviewed and I authenticate all verbal orders and agree with the evaluation and treatment provided.Corrections: (The following items were deleted from the chart) 15:18 15:17 GASTROINTESTINAL (GI) PANEL+AZUCENA ordered. EDMS EDMS Attachments: 16:58 [facility] Payment Agreement [facility] 11/25 09:56 T-Sheet-- Draft Copy Chart Complete MTDD
--- NOTE | 2016-11-27 10:57 | EDDOCDS ---
Nurse's Notes [facility] Name: Spring Hamilton Age: 56 yrs Sex: Female : 1960 Arrival Date: 11/24/2016 Time: 14:20 Bed I5 / M5 Private MD: NO PRIMARY PHYSICIAN, . Diagnosis: Anemia, unspecified;Urinary tract infection, site not specified;Nausea Presentation: 11/24 14:32 Presenting complaint: Patient states: "unable to tolerate any food", states immediate ck1 diarrhea after eating, increased weakness, "I feel like I have and unsteady gait". Drinking from [employer] to go cup. Denies pain. Adult Sepsis Screening: The patient does not have new or worsening altered mentation. Patient's respiratory rate is less than 22. Systolic blood pressure is greater than 100. Patient has a qSOFA score of 0- Negative Sepsis Screen. Suicide/Homicide risk assessment- the patient denies having any suicidal and/or homicidal ideations and does not present with any other emotional, behavioral or mental health complaints. Status: Patient is not a service sprinkler helper or dependent. Transition of care: patient was not received from another setting of care. 14:32 Method Of Arrival: Walkin/Carried/Asstd ck1 14:32 Acuity: SALVATORE Level 3 ck1 Triage Assessment: 14:38 General: Appears in no apparent distress, comfortable, Behavior is appropriate for age, ck1 cooperative. Pain: Denies pain. HIV screening NA for this visit Offered previously. Neurological: Level of Consciousness is awake, alert, obeys commands, Oriented to person, place, time. Respiratory: Respiratory effort is unlabored, Respiratory pattern is regular, symmetrical. GI: Reports diarrhea. GI: Reports nausea. Derm: Skin is intact, is healthy with good turgor, Skin is pink, warm & dry. Musculoskeletal: Circulation, motion, and sensation intact Range of motion intact in all extremities. CHECK WEIGHER: 14:39 LMP N/A - Post-menopause ck1 Historical: - Allergies: No known drug Allergies; - Home Meds: 1. pantoprazole 40 mg oral TbEC 1 tab once daily hasn't been taking because she read side effects 2. ibuprofen 800 mg Oral tab as needed (Last dose: Unknown) - PMHx: GERD; - PSHx: Cesearean Section; - Social history: Smoking status: Patient states was never smoker of tobacco. No barriers to communication noted, The patient speaks fluent Beninese, Speaks appropriately for age. - Family history: Not pertinent. - : The pt / caregiver states he / she is not on anticoagulants. Home medication list is obtained from the patient. - Exposure Risk Screening:: None identified. Screenin:16 Screening information is obtained from the patient. Fall risk: No risks identified. [facility] Assistance ADL's: requires no assistance with activities of daily living. Abuse/DV Screen: The patient / caregiver reports he/she is: not in a situation that causes fear, pain or injury. Nutritional screening: No deficits noted. Advance Directives: There is no active DNR order. home support is adequate. Assessment: 16:16 General: Appears in no apparent distress, comfortable, Behavior is appropriate for age, [facility] cooperative. Respiratory: Airway is patent Respiratory effort is even, unlabored, Respiratory pattern is regular, symmetrical. GI: Abdomen is non- distended Bowel sounds present X 4 quads. Abd is soft Abd is tender to palpation X 4 quads. Reports diarrhea. Derm: Skin is normal. 17:00 General: Appears in no apparent distress, comfortable, Behavior is appropriate for age, [facility] cooperative, warm blankets provided, denies needs at this time. 18:21 General: Appears in no apparent distress, comfortable, Behavior is appropriate for age, [facility] cooperative. General: reports feeling much better, reviewed discharge instructions, encouraged and answered questions, denies further needs. Pain: Denies pain. Vital Signs: 14:21 BP 147 / 77; Pulse 90; Resp 18; Temp 98.6(O); Pulse Ox 100% on R/A; Weight 102.51 kg [facility] (M); Height 5 ft. 4 in. (162.56 cm); Pain 0/10; 18:21 BP 143 / 74; Pulse 80; Resp 16; Temp 97.7; Pulse Ox 95% ; Pain 0/10; h 14:21 Body Mass Index 38.79 (102.51 kg, 162.56 cm) [facility] Vitals: 14:21 Log In Time: November 24, 2016 at 14:15. [facility] ED Course: 14:21 Patient visited by Uriah Harrison. [facility] 14:21 NO PRIMARY PHYSICIAN, . is Private Physician. dem1 14:21 Patient moved to Waiting dem1 14:23 Patient moved to Pre RCE dem1 14:36 Triage Initiated ck1 14:57 Patient moved to Triage 1 ck1 15:08 Chon Qiu F[facility]. ke 15:08 Patient visited by Chon Qiu FNP. ke 15:08 Patient visited by Chon Qiu FNP. ke 15:17 Patient moved to I5 / M5 ttb 15:26 Patient visited by Zarina Gorman PCA. jlf 15:47 Patient visited by Chon Qiu FNP. ke 16:11 Patient visited by Zarina Gorman PCA. jlf 16:16 The patient / caregiver is instructed regarding the plan of care and ED course. [facility] 16:16 Abdomen, Flat\\E\\Upright,PA Chest Returned. EDMS 16:16 Inserted saline lock: 20 gauge in right antecubital area and blood collected. The [facility] patient tolerated the procedure well. Labs drawn. (by ED staff). Sent per order to lab. 16:22 Patient visited by Zarina Gorman PCA. jlf 16:41 Patient visited by Zarina Gorman PCA. jlf 16:41 Urinalysis Sent. jlf 16:41 Urine Culture Sent. jlf 16:58 [facility] Payment Agreement was scanned into [employer] and attached to record. gjb 17:20 Patient name changed from Spring\\S\\\\S\\Alfonso\\S\\ to Spring\\S\\Ines\\S\\Alfonso. EDMS 17:25 Patient visited by Chon Qiu FNP. ke 18:21 Discontinued lock intact, bleeding controlled, pressure dressing applied, No [facility] redness/swelling at site. No procedures done that require assistance. 11/25 09:56 T-Sheet-- Draft Copy was scanned into [employer] and attached to record. gb Administered Medications: 11/24 16:15 Drug: Ondansetron 4 mg Route: IVP; Site: left antecubital; [facility] 16:15 Drug: pantoprazole 40 mg [pantoprazole 40 mg intravenous solution] Route: IV; Rate: cjh bolus; Site: left antecubital; 16:16 Drug: NS 0.9% 1000 ml Route: IV; Rate: 250 mL/hr; Site: right antecubital; cjh 18:23 Follow up: IV Status: Infusion discontinued; IV Intake: 250ml [facility] Intake: 18:23 IV: 250.00ml; Total: 250.00ml. [facility] Order Results: Lab Order: Amylase; SPEC'M 11/24/16 15:47 Test: AMYLASE; Value: 37; Range: 25-115; Units: U/L; Status: F Lab Order: Basic Metabolic Profile; SPEC' 11/24/16 15:47 Test: GLUCOSE, FASTING; Value: 97; Range: 70-105; Units: MG/DL; Status: F Test: BLOOD UREA NITROGEN; Value: 9; Range: 7-18; Units: MG/DL; Status: F Test: CREATININE FOR GFR; Value: 0.75; Range: 0.55-1.02; Units: MG/DL; Status: F Test: GLOMERULAR FILTRATION RATE; Value: > 60.0; Range: >51; Status: F Test: SODIUM LEVEL; Value: 144; Range: 136-145; Units: MEQ/L; Status: F Test: POTASSIUM SERUM; Value: 3.7; Range: 3.5-5.1; Units: MEQ/L; Status: F Test: CHLORIDE LEVEL; Value: 109; Range: 98-107; Abnormal: Above high normal; Units: MEQ/L; Status: F Test: CARBON DIOXIDE LEVEL; Value: 24; Range: 21-32; Units: MEQ/L; Status: F Test: ANION GAP; Value: 11; Range: 8-16; Units: MEQ/L; Status: F Test: CALCIUM LEVEL; Value: 8.0; Range: 8.5-10.1; Abnormal: Below low normal; Units: MG/DL; Status: F Test Note: ; Units are mL/min/1.73 m2 Chronic Kidney Disease Staging per NKF: Stage I & II GFR >=60 Normal to Mildly Decreased Stage III GFR 30-59 Moderately Decreased Stage IV GFR 15-29 Severely Decreased Stage V GFR <15 Very Little GFR Left ESRD GFR <15 on MATERIAL REQUIREMENTS WORKER Lab Order: CBC with Diff; SPEC'11/24/16 15:47 Test: WHITE BLOOD COUNT; Value: 4.7; Range: 4.0-10.0; Units: K/mm3; Status: F Test: RED BLOOD COUNT; Value: 2.05; Range: 4.00-5.40; Abnormal: Below low normal; Units: M/mm3; Status: F Test: HEMOGLOBIN; Value: 8.6; Range: 12.0-16.0; Abnormal: Below low normal; Units: g/dl; Status: F Test: HEMATOCRIT; Value: 25.3; Range: 36.0-47.0; Abnormal: Below low normal; Units: %; Status: F Test: MEAN CORPUSCULAR VOLUME; Value: 123.9; Range: 80.0-96.0; Abnormal: Above high normal; Units: fl; Status: F Test: MEAN CORPUSCULAR HEMOGLOBIN; Value: 41.9; Range: 27.0-33.0; Abnormal: Above high normal; Units: pg; Status: F Test: MEAN CORPUSCULAR HGB CONC; Value: 33.8; Range: 32.0-36.5; Units: g/dl; Status: F Test: RED CELL DISTRIBUTION WIDTH; Value: 19.6; Range: 11.5-14.5; Abnormal: Above high normal; Units: %; Status: F Test: PLATELET COUNT, AUTOMATED; Value: 219; Range: 150-450; Units: k/mm3; Status: F Test: PLATELET ESTIMATE; Range: NORMAL; Status: I Test: NEUTROPHILS; Value: 65; Range: 35-75; Units: %; Status: F Test: LYMPHOCYTES; Value: 29; Range: 16-52; Units: %; Status: F Test: MONOCYTES; Value: 1; Range: 0-8; Units: %; Status: F Test: EOSINOPHILS; Value: 4; Range: 0-5; Units: %; Status: F Test: BASOPHILS; Value: 1; Range: 0-4; Units: %; Status: F Test: NUCLEATED RED BLOOD CELL; Value: 2; Range: 0-0; Abnormal: Above high normal; Units: %; Status: F Test: POLYCHROMASIA; Value: 1+; Status: F Test: POIKILOCYTOSIS; Value: 1+; Status: F Test: ANISOCYTOSIS; Value: 2+; Status: F Test: MACROCYTOSIS; Value: 3+; Status: F Test: TEAR DROP CELLS; Value: 1+; Status: F Lab Order: Lipase; SPEC'M 11/24/16 15:47 Test: LIPASE; Value: 116; Range: 73-393; Units: U/L; Status: F Lab Order: Liver Profile; [facility] 11/24/16 15:47 Test: AST/SGOT; Value: 157; Range: 15-37; Abnormal: Above high normal; Units: U/L; Status: F Test: ALT/SGPT; Value: 71; Range: 12-78; Units: U/L; Status: F Test: ALKALINE PHOSPHATASE; Value: 92; Range: 45-117; Units: U/L; Status: F Test: BILIRUBIN,TOTAL; Value: 2.6; Range: 0.2-1.0; Abnormal: Above high normal; Units: MG/DL; Status: F Test: BILIRUBIN,DIRECT; Value: 0.4; Range: 0.0-0.2; Abnormal: Above high normal; Units: MG/DL; Status: F Test: TOTAL PROTEIN; Value: 7.4; Range: 6.4-8.2; Units: GM/DL; Status: F Test: ALBUMIN; Value: 3.8; Range: 3.2-5.2; Units: GM/DL; Status: F Test: ALBUMIN/GLOBULIN RATIO; Value: 1.06; Range: 1.00-1.93; Status: F Lab Order: Prothrombin Time Profile\\E\\INR; [facility] 11/24/16 15:47 Test: PROTHROMBIN TIME; Value: 13.8; Range: 12.3-14.5; Units: SECONDS; Status: F Test: INR; Value: 1.05; Status: F Test Note: ; THERAPUTIC HUMAN INR VALUES INDICATIONS NORMAL RANGES PROPHYLAXIS/TREATMENT OF: VENOUS THROMBOSIS 2.0-3.0 PULMONARY EMBOLISM 2.0-3.0 PREVENTION OF SYSTEMIC EMBOLISM FROM: TISSUE HEART VALVES 2.0-3.0 ACUTE MYOCARDIAL INFARCTION 2.0-3.0 VALVULAR HEART DISEASE 2.0-3.0 ATRIAL FIBRILLATION 2.0-3.0 MECHANICAL VALVES(HIGH RISK) 2.5-3.5 RECURRENT MYOCARDIAL INFARCTION 2.5-3.5 Lab Order: Urinalysis; [facility] 11/24/16 16:36 Test: APPEARANCE, URINE; Value: CLEAR; Range: CLEAR; Status: F Test: COLOR, URINE; Value: DILLON; Range: YELLOW; Status: F Test: PH,URINE; Value: 6.0; Range: 5.0-9.0; Units: UNITS; Status: F Test: SPECIFIC GRAVITY URINE AUTO; Value: 1.019; Range: 1.002-1.035; Status: F Test: PROTEIN, URINE AUTO; Value: 1+; Range: NEGATIVE; Abnormal: Above high normal; Units: mg/dL; Status: F Test: GLUCOSE, URINE (UA) AUTO; Value: NEGATIVE; Range: NEGATIVE; Units: mg/dL; Status: F Test: KETONE, URINE AUTO; Value: TRACE; Range: NEGATIVE; Abnormal: Above high normal; Units: mg/dL; Status: F Test: UROBILINOGEN, URINE AUTO; Value: 4.0; Range: 0.0-2.0; Abnormal: Above high normal; Units: mg/dL; Status: F Test: BILIRUBIN, URINE AUTO; Value: 1+; Range: NEGATIVE; Abnormal: Above high normal; Status: F Test: NITRITE, URINE AUTO; Value: NEGATIVE; Range: NEGATIVE; Status: F Test: LEUKOCYTE ESTERASE, URINE AUTO; Value: 3+; Range: NEGATIVE; Abnormal: Above high normal; Status: F Test: BLOOD, URINE BLOOD; Value: 1+; Range: NEGATIVE; Abnormal: Above high normal; Status: F Test: WBC, URINE AUTO; Value: TNTC; Range: 0-3; Abnormal: Above high normal; Units: /HPF; Status: F Test: RBC, URINE AUTO; Value: 7; Range: 0-3; Abnormal: Above high normal; Units: /HPF; Status: F Test: BACTERIA, URINE AUTO; Value: 3+; Range: NEGATIVE; Abnormal: Above high normal; Status: F Test: SQUAMOUS EPITHELIAL CELL UR AU; Value: 1; Range: 0-6; Units: /HPF; Status: F Test: MUCUS, URINE; Value: LARGE; Range: NEGATIVE; Status: F Test: HYALINE CAST, URINE AUTO; Value: 5; Range: 0-1; Units: /LPF; Status: F Test: AMORPHOUS SEDIMENT; Value: SMALL; Range: NEGATIVE; Abnormal: Above high normal; Status: F Lab Order: Urine Culture; SPEC'M 11/24/16 16:35 Test: URINE CULTURE; Value: <EXTERNAL COMMENT eCWMed> FULL REPORT IN LAB NOTES (eCW and Medent).; Status: F Test: URINE CULTURE; Value: ORGANISM 1: ESCHERICHIA COLI; Status: F Test: URINE CULTURE; Value: ESCHERICHIA COLI; Status: F Test: URINE CULTURE; Value: COLONY COUNT CFU/ml >100,000; Status: F Test: URINE CULTURE; Value: GRAM NEG SENSI - VITEK 80; Status: F Test: URINE CULTURE; Value: Method: VIT2; Status: F Test: URINE CULTURE; Value: EXTD BRD SPCTRM BETA LACTAMASE -; Status: F Test: URINE CULTURE; Value: TRIMETHOPRIM/SULFAMETHOXAZOLE <=20 S; Status: F Test: URINE CULTURE; Value: AMPICILLIN >=32 R; Status: F Test: URINE CULTURE; Value: GENTAMICIN <=1 S; Status: F Test: URINE CULTURE; Value: NITROFURANTOIN <=16 S; Status: F Test: URINE CULTURE; Value: CEFAZOLIN <=4 S; Status: F Test: URINE CULTURE; Value: LEVOFLOXACIN >=8 R; Status: F Test: URINE CULTURE; Value: TOBRAMYCIN <=1 S; Status: F Test: URINE CULTURE; Value: CEFTRIAXONE <=1 S; Status: F Test: URINE CULTURE; Value: CEFTAZIDIME <=1 S; Status: F Test: URINE CULTURE; Value: AMPICILLIN/SULBACTAM >=32 R; Status: F Test: URINE CULTURE; Value: PIPERACILLIN/TAZOBACTAM <=4 S; Status: F Test: URINE CULTURE; Value: AZTREONAM <=1 S; Status: F Test: URINE CULTURE; Value: ERTAPENEM <=0.5 S; Status: F Test: URINE CULTURE; Value: MEROPENEM <=0.25 S; Status: F Test: URINE CULTURE; Value: TIGECYCLINE <=0.5 S; Status: F Test: URINE CULTURE; Value: CEFEPIME <=1 S; Status: F Lab Order: PLATELET ESTIMATE; SPEC'M 11/24/16 15:47 Test: PLATELET ESTIMATE; Value: NORMAL; Range: NORMAL; Status: F Radiology Order: Abdomen, Flat\\E\\Upright,PA Chest Test: Abdomen, Flat\\E\\Upright,PA Chest REASON FOR EXAMINATION: Abdomen Pain; ABDOMEN AND FLAT UPRIGHT PA CHEST, THREE VIEWS:; ; HISTORY: Abdominal pain.; ; A small amount of air is present in small and large intestine. There are no air; fluid levels or dilated loops of intestine. There is no pneumoperitoneum. A 10; mm calcification is present in the left lateral abdomen. The lungs are clear.; ; IMPRESSION:; ; Nonspecific bowel gas pattern.; ; ; Signed by; Suleiman Colon MD 11/24/2016 04:05 P; Outcome: 17:56 Discharge ordered by Provider. dariana 18:21 Discharge Assessment: Patient awake, alert and oriented x 3. No cognitive and/or [facility] functional deficits noted. Patient verbalized understanding of disposition instructions. patient administered narcotics - no. The following High Risk Discharge criteria are identified: None. Discharged to home ambulatory, with family. Condition: good Condition: stable Condition: improved. Discharge instructions given to patient, Instructed on discharge instructions, follow up and referral plans. medication usage, Demonstrated understanding of instructions, medications, Pt was receptive of discharge instructions/ teaching. Prescriptions given X 4. No special radiology studies were completed. Property :Personal belongings accompany Pt. 18:24 Patient left the ED. [facility] Addendum: 11/27/2016 10:16 Narrative: Urine culture results reviewed with Dr. Melchor and Rx changed to Macrobid kcs 100 mg po BID x 10 days. Message left for patient to call us so we can call Rx into her pharmacy. 10:54 Narrative: Patient called back and given results - requests [facility] on [address]. kcs Rx called in. Signatures: Dispatcher [employer] EDMS Yuko Gillis RN RN Savanah Sam, Reg Reg Chon Collazo, NETWORK CONTROL TECHNICIAN NETWORK CONTROL TECHNICIAN Amalia RondonRN RN [email or web address] Uriah Harrison Jane, RN RN [facility] Heidi Pat RN RN ttb Forney, Jordain, Bibiana Sofia Chart Complete MTDD
--- NOTE | 2016-11-27 10:57 | EDDOCDS ---
Physician Documentation [facility] Name: Spring Hamilton Age: 56 yrs Sex: Female : 1960 Arrival Date: 11/24/2016 Time: 14:20 Bed I5 / M5 Private MD: NO PRIMARY PHYSICIAN, . Disposition: 11/24/16 17:56 Discharged to Home/Self Care. Impression: Anemia, unspecified, Urinary tract infection, site not specified, Nausea. - Condition is Stable. - Discharge Instructions: Anemia, Nonspecific, Urinary Tract Infection, [id number]. - Prescriptions for Cipro 500 mg Oral Tablet - take 1 tablet by ORAL route every 12 hours; 14 tablet. Pyridium 200 mg Oral Tablet - take 1 tablet by ORAL route every 8 hours for 3 days; 9 tablet. Zofran 4 mg Oral Tablet - take 1 tablet by ORAL route 4 times per day As needed; 10 tablet. - Medication Reconciliation, Local Pharmacy Hours form. - Follow up: Private Physician; When: 4 - 5 days; Reason: Recheck today's complaints, Continuance of care. - Problem is an ongoing problem. - Symptoms are unchanged. Historical: - Allergies: No known drug Allergies; - Home Meds: 1. pantoprazole 40 mg oral TbEC 1 tab once daily hasn't been taking because she read side effects 2. ibuprofen 800 mg Oral tab as needed (Last dose: Unknown) - PMHx: GERD; - PSHx: Cesearean Section; - Social history: Smoking status: Patient states was never smoker of tobacco. No barriers to communication noted, The patient speaks fluent Kenyan, Speaks appropriately for age. - Family history: Not pertinent. - : The pt / caregiver states he / she is not on anticoagulants. Home medication list is obtained from the patient. - Exposure Risk Screening:: None identified. 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 4 in. (162.56 cm); Pain 0/10; 18:21 BP 143 / 74; Pulse 80; Resp 16; Temp 97.7; Pulse Ox 95% ; Pain 0/10; cjh 14:21 Body Mass Index 38.79 (102.51 kg, 162.56 cm) dem1 MDM: 15:15 Undress patient appropriately for examination ordered. ke 15:15 NS 0.9% 1000 ml IV at 250 mL/hr continuous ordered. ke 15:15 Ondansetron 4 mg IVP once ordered. ke 15:15 pantoprazole 40 mg IV at bolus once ordered. ke 15:16 Amylase Ordered. EDMS 15:16 Basic Metabolic Profile Ordered. EDMS 15:16 CBC with Diff Ordered. EDMS 15:16 Lipase Ordered. EDMS 15:16 Liver Profile Ordered. EDMS 15:16 Prothrombin Time Profile\E\INR Ordered. EDMS 15:16 Urinalysis Ordered. EDMS 15:17 Urine Culture Ordered. EDMS 15:17 Abdomen, Flat\E\Upright,PA Chest Ordered. EDMS 15:17 NOTHING BY MOUTH+DIET ordered. EDMS 15:18 GASTROINTESTINAL (GI) PANEL Ordered. EDMS 16:14 DIFFERENTIAL NO CHARGE Ordered. EDMS 16:14 PLATELET ESTIMATE Ordered. EDMS 16:42 Financial registration complete. gjb 16:58 [facility] Payment Agreement was scanned into [employer] and attached to record. gjb 17:04 Basic Metabolic Profile Reviewed. ke 17:04 CBC with Diff Reviewed. ke 17:04 Liver Profile Reviewed. ke 17:04 Amylase Reviewed. ke 17:04 Lipase Reviewed. ke 17:04 Prothrombin Time Profile\E\INR Reviewed. ke 17:04 Abdomen, Flat\E\Upright,PA Chest Reviewed. ke 17:45 CBC with Diff Reviewed. ke 17:45 Urinalysis Reviewed. ke 17:45 PLATELET ESTIMATE Reviewed. ke 11/25 09:56 T-Sheet-- Draft Copy was scanned into [employer] and attached to record. gb Administered Medications: 11/24 16:15 Drug: Ondansetron 4 mg Route: IVP; Site: left antecubital; [facility] 16:15 Drug: pantoprazole 40 mg [pantoprazole 40 mg intravenous solution] Route: IV; Rate: cjh bolus; Site: left antecubital; 16:16 Drug: NS 0.9% 1000 ml Route: IV; Rate: 250 mL/hr; Site: right antecubital; [facility] 18:23 Follow up: IV Status: Infusion discontinued; IV Intake: 250ml [facility] Signatures: Dispatcher [employer] EDMS Savanah Torres, Reg Reg gb Chon Qiu, PROJECT HIRE PROJECT HIRE Amalia RondonRN RN ck1 Anahi RussoRN RN [facility] Bibiana Hoffmann The chart was reviewed and I authenticate all verbal orders and agree with the evaluation and treatment provided.Corrections: (The following items were deleted from the chart) 15:18 15:17 GASTROINTESTINAL (GI) PANEL+AZUCENA ordered. EDMS EDMS Attachments: 16:58 [facility] Payment Agreement [facility] 11/25 09:56 T-Sheet-- Draft Copy Chart Complete MTDD
--- NOTE | 2016-11-27 11:02 | EDDOCDS ---
Physician Documentation [facility] Name: Spring Hamilton Age: 56 yrs Sex: Female : 1960 Arrival Date: 11/24/2016 Time: 14:20 Bed I5 / M5 Private MD: NO PRIMARY PHYSICIAN, . Disposition: 11/24/16 17:56 Discharged to Home/Self Care. Impression: Anemia, unspecified, Urinary tract infection, site not specified, Nausea. - Condition is Stable. - Discharge Instructions: Anemia, Nonspecific, Urinary Tract Infection, Bygh-ae-Nyaj. - Prescriptions for Cipro 500 mg Oral Tablet - take 1 tablet by ORAL route every 12 hours; 14 tablet. Pyridium 200 mg Oral Tablet - take 1 tablet by ORAL route every 8 hours for 3 days; 9 tablet. Zofran 4 mg Oral Tablet - take 1 tablet by ORAL route 4 times per day As needed; 10 tablet. - Medication Reconciliation, Local Pharmacy Hours form. - Follow up: Private Physician; When: 4 - 5 days; Reason: Recheck today's complaints, Continuance of care. - Problem is an ongoing problem. - Symptoms are unchanged. Historical: - Allergies: No known drug Allergies; - Home Meds: 1. pantoprazole 40 mg oral TbEC 1 tab once daily hasn't been taking because she read side effects 2. ibuprofen 800 mg Oral tab as needed (Last dose: Unknown) - PMHx: GERD; - PSHx: Cesearean Section; - Social history: Smoking status: Patient states was never smoker of tobacco. No barriers to communication noted, The patient speaks fluent Japanese, Speaks appropriately for age. - Family history: Not pertinent. - : The pt / caregiver states he / she is not on anticoagulants. Home medication list is obtained from the patient. - Exposure Risk Screening:: None identified. 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 4 in. (162.56 cm); Pain 0/10; 18:21 BP 143 / 74; Pulse 80; Resp 16; Temp 97.7; Pulse Ox 95% ; Pain 0/10; cjh 14:21 Body Mass Index 38.79 (102.51 kg, 162.56 cm) dem1 MDM: 15:15 Undress patient appropriately for examination ordered. ke 15:15 NS 0.9% 1000 ml IV at 250 mL/hr continuous ordered. ke 15:15 Ondansetron 4 mg IVP once ordered. ke 15:15 pantoprazole 40 mg IV at bolus once ordered. ke 15:16 Amylase Ordered. EDMS 15:16 Basic Metabolic Profile Ordered. EDMS 15:16 CBC with Diff Ordered. EDMS 15:16 Lipase Ordered. EDMS 15:16 Liver Profile Ordered. EDMS 15:16 Prothrombin Time Profile\E\INR Ordered. EDMS 15:16 Urinalysis Ordered. EDMS 15:17 Urine Culture Ordered. EDMS 15:17 Abdomen, Flat\E\Upright,PA Chest Ordered. EDMS 15:17 NOTHING BY MOUTH+DIET ordered. EDMS 15:18 GASTROINTESTINAL (GI) PANEL Ordered. EDMS 16:14 DIFFERENTIAL NO CHARGE Ordered. EDMS 16:14 PLATELET ESTIMATE Ordered. EDMS 16:42 Financial registration complete. gjb 16:58 [facility] Payment Agreement was scanned into [employer] and attached to record. gjb 17:04 Basic Metabolic Profile Reviewed. ke 17:04 CBC with Diff Reviewed. ke 17:04 Liver Profile Reviewed. ke 17:04 Amylase Reviewed. ke 17:04 Lipase Reviewed. ke 17:04 Prothrombin Time Profile\E\INR Reviewed. ke 17:04 Abdomen, Flat\E\Upright,PA Chest Reviewed. ke 17:45 CBC with Diff Reviewed. ke 17:45 Urinalysis Reviewed. ke 17:45 PLATELET ESTIMATE Reviewed. ke 11/25 09:56 T-Sheet-- Draft Copy was scanned into [employer] and attached to record. gb Administered Medications: 11/24 16:15 Drug: Ondansetron 4 mg Route: IVP; Site: left antecubital; [facility] 16:15 Drug: pantoprazole 40 mg [pantoprazole 40 mg intravenous solution] Route: IV; Rate: cjh bolus; Site: left antecubital; 16:16 Drug: NS 0.9% 1000 ml Route: IV; Rate: 250 mL/hr; Site: right antecubital; [facility] 18:23 Follow up: IV Status: Infusion discontinued; IV Intake: 250ml [facility] Signatures: Dispatcher [employer] EDMS Savanah Torres, Reg Reg gb Chon Qiu, VOCATIONAL REHABILITATION COUNSELOR VOCATIONAL REHABILITATION COUNSELOR Amalia RondonRN RN ck1 Anahi RussoRN RN [facility] Bibiana Hoffmann The chart was reviewed and I authenticate all verbal orders and agree with the evaluation and treatment provided.Corrections: (The following items were deleted from the chart) 15:18 15:17 GASTROINTESTINAL (GI) PANEL+AZUCENA ordered. EDMS EDMS Attachments: 16:58 [facility] Payment Agreement [facility] 11/25 09:56 T-Sheet-- Draft Copy Chart Complete MTDD
--- NOTE | 2016-11-27 11:02 | EDDOCDS ---
Nurse's Notes [facility] Name: Spring Hamilton Age: 56 yrs Sex: Female : 1960 Arrival Date: 11/24/2016 Time: 14:20 Bed I5 / M5 Private MD: NO PRIMARY PHYSICIAN, . Diagnosis: Anemia, unspecified;Urinary tract infection, site not specified;Nausea Presentation: 11/24 14:32 Presenting complaint: Patient states: "unable to tolerate any food", states immediate ck1 diarrhea after eating, increased weakness, "I feel like I have and unsteady gait". Drinking from [employer] to go cup. Denies pain. Adult Sepsis Screening: The patient does not have new or worsening altered mentation. Patient's respiratory rate is less than 22. Systolic blood pressure is greater than 100. Patient has a qSOFA score of 0- Negative Sepsis Screen. Suicide/Homicide risk assessment- the patient denies having any suicidal and/or homicidal ideations and does not present with any other emotional, behavioral or mental health complaints. 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 Transition of care: patient was not received from another setting of care. 14:32 Method Of Arrival: Walkin/Carried/Asstd ck1 14:32 Acuity: SALVATORE Level 3 ck1 Triage Assessment: 14:38 General: Appears in no apparent distress, comfortable, Behavior is appropriate for age, ck1 cooperative. Pain: Denies pain. HIV screening NA for this visit Offered previously. Neurological: Level of Consciousness is awake, alert, obeys commands, Oriented to person, place, time. Respiratory: Respiratory effort is unlabored, Respiratory pattern is regular, symmetrical. GI: Reports diarrhea. GI: Reports nausea. Derm: Skin is intact, is healthy with good turgor, Skin is pink, warm & dry. Musculoskeletal: Circulation, motion, and sensation intact Range of motion intact in all extremities. SEED PACKER: 14:39 LMP N/A - Post-menopause ck1 Historical: - Allergies: No known drug Allergies; - Home Meds: 1. pantoprazole 40 mg oral TbEC 1 tab once daily hasn't been taking because she read side effects 2. ibuprofen 800 mg Oral tab as needed (Last dose: Unknown) - PMHx: GERD; - PSHx: Cesearean Section; - Social history: Smoking status: Patient states was never smoker of tobacco. No barriers to communication noted, The patient speaks fluent Micronesian, Speaks appropriately for age. - Family history: Not pertinent. - : The pt / caregiver states he / she is not on anticoagulants. Home medication list is obtained from the patient. - Exposure Risk Screening:: None identified. Screenin:16 Screening information is obtained from the patient. Fall risk: No risks identified. [facility] Assistance ADL's: requires no assistance with activities of daily living. Abuse/DV Screen: The patient / caregiver reports he/she is: not in a situation that causes fear, pain or injury. Nutritional screening: No deficits noted. Advance Directives: There is no active DNR order. home support is adequate. Assessment: 16:16 General: Appears in no apparent distress, comfortable, Behavior is appropriate for age, [facility] cooperative. Respiratory: Airway is patent Respiratory effort is even, unlabored, Respiratory pattern is regular, symmetrical. GI: Abdomen is non- distended Bowel sounds present X 4 quads. Abd is soft Abd is tender to palpation X 4 quads. Reports diarrhea. Derm: Skin is normal. 17:00 General: Appears in no apparent distress, comfortable, Behavior is appropriate for age, [facility] cooperative, warm blankets provided, denies needs at this time. 18:21 General: Appears in no apparent distress, comfortable, Behavior is appropriate for age, [facility] cooperative. General: reports feeling much better, reviewed discharge instructions, encouraged and answered questions, denies further needs. Pain: Denies pain. Vital Signs: 14:21 BP 147 / 77; Pulse 90; Resp 18; Temp 98.6(O); Pulse Ox 100% on R/A; Weight 102.51 kg [facility] (M); Height 5 ft. 4 in. (162.56 cm); Pain 0/10; 18:21 BP 143 / 74; Pulse 80; Resp 16; Temp 97.7; Pulse Ox 95% ; Pain 0/10; h 14:21 Body Mass Index 38.79 (102.51 kg, 162.56 cm) [facility] Vitals: 14:21 Log In Time: November 24, 2016 at 14:15. [facility] ED Course: 14:21 Patient visited by Uriah Harrison. [facility] 14:21 NO PRIMARY PHYSICIAN, . is Private Physician. dem1 14:21 Patient moved to Waiting dem1 14:23 Patient moved to Pre RCE dem1 14:36 Triage Initiated ck1 14:57 Patient moved to Triage 1 ck1 15:08 [facility] ke 15:08 Patient visited by Chon Qiu FNP. ke 15:08 Patient visited by Chon Qiu FNP. ke 15:17 Patient moved to I5 / M5 ttb 15:26 Patient visited by Zarina Gorman PCA. jlf 15:47 Patient visited by Chon Qiu FNP. ke 16:11 Patient visited by Zarina Gorman PCA. jlf 16:16 The patient / caregiver is instructed regarding the plan of care and ED course. [facility] 16:16 Abdomen, Flat\\E\\Upright,PA Chest Returned. EDMS 16:16 Inserted saline lock: 20 gauge in right antecubital area and blood collected. The [facility] patient tolerated the procedure well. Labs drawn. (by ED staff). Sent per order to lab. 16:22 Patient visited by Zarina Gorman PCA. jlf 16:41 Patient visited by Zarina Gorman PCA. jlf 16:41 Urinalysis Sent. jlf 16:41 Urine Culture Sent. jlf 16:58 [facility] Payment Agreement was scanned into [employer] and attached to record. gjb 17:20 Patient name changed from Spring\\S\\\\S\\Alfonso\\S\\ to Spring\\S\\Ines\\S\\Alfonso. EDMS 17:25 Patient visited by Chon Qiu FNP. ke 18:21 Discontinued lock intact, bleeding controlled, pressure dressing applied, No [facility] redness/swelling at site. No procedures done that require assistance. 11/25 09:56 T-Sheet-- Draft Copy was scanned into [employer] and attached to record. gb Administered Medications: 11/24 16:15 Drug: Ondansetron 4 mg Route: IVP; Site: left antecubital; [facility] 16:15 Drug: pantoprazole 40 mg [pantoprazole 40 mg intravenous solution] Route: IV; Rate: cjh bolus; Site: left antecubital; 16:16 Drug: NS 0.9% 1000 ml Route: IV; Rate: 250 mL/hr; Site: right antecubital; cjh 18:23 Follow up: IV Status: Infusion discontinued; IV Intake: 250ml [facility] Intake: 18:23 IV: 250.00ml; Total: 250.00ml. [facility] Order Results: Lab Order: Amylase; SPEC'M 11/24/16 15:47 Test: AMYLASE; Value: 37; Range: 25-115; Units: U/L; Status: F Lab Order: Basic Metabolic Profile; SPEC' 11/24/16 15:47 Test: GLUCOSE, FASTING; Value: 97; Range: 70-105; Units: MG/DL; Status: F Test: BLOOD UREA NITROGEN; Value: 9; Range: 7-18; Units: MG/DL; Status: F Test: CREATININE FOR GFR; Value: 0.75; Range: 0.55-1.02; Units: MG/DL; Status: F Test: GLOMERULAR FILTRATION RATE; Value: > 60.0; Range: >51; Status: F Test: SODIUM LEVEL; Value: 144; Range: 136-145; Units: MEQ/L; Status: F Test: POTASSIUM SERUM; Value: 3.7; Range: 3.5-5.1; Units: MEQ/L; Status: F Test: CHLORIDE LEVEL; Value: 109; Range: 98-107; Abnormal: Above high normal; Units: MEQ/L; Status: F Test: CARBON DIOXIDE LEVEL; Value: 24; Range: 21-32; Units: MEQ/L; Status: F Test: ANION GAP; Value: 11; Range: 8-16; Units: MEQ/L; Status: F Test: CALCIUM LEVEL; Value: 8.0; Range: 8.5-10.1; Abnormal: Below low normal; Units: MG/DL; Status: F Test Note: ; Units are mL/min/1.73 m2 Chronic Kidney Disease Staging per NKF: Stage I & II GFR >=60 Normal to Mildly Decreased Stage III GFR 30-59 Moderately Decreased Stage IV GFR 15-29 Severely Decreased Stage V GFR <15 Very Little GFR Left ESRD GFR <15 on CLINICAL ASSOC Lab Order: CBC with Diff; SPEC'11/24/16 15:47 Test: WHITE BLOOD COUNT; Value: 4.7; Range: 4.0-10.0; Units: K/mm3; Status: F Test: RED BLOOD COUNT; Value: 2.05; Range: 4.00-5.40; Abnormal: Below low normal; Units: M/mm3; Status: F Test: HEMOGLOBIN; Value: 8.6; Range: 12.0-16.0; Abnormal: Below low normal; Units: g/dl; Status: F Test: HEMATOCRIT; Value: 25.3; Range: 36.0-47.0; Abnormal: Below low normal; Units: %; Status: F Test: MEAN CORPUSCULAR VOLUME; Value: 123.9; Range: 80.0-96.0; Abnormal: Above high normal; Units: fl; Status: F Test: MEAN CORPUSCULAR HEMOGLOBIN; Value: 41.9; Range: 27.0-33.0; Abnormal: Above high normal; Units: pg; Status: F Test: MEAN CORPUSCULAR HGB CONC; Value: 33.8; Range: 32.0-36.5; Units: g/dl; Status: F Test: RED CELL DISTRIBUTION WIDTH; Value: 19.6; Range: 11.5-14.5; Abnormal: Above high normal; Units: %; Status: F Test: PLATELET COUNT, AUTOMATED; Value: 219; Range: 150-450; Units: k/mm3; Status: F Test: PLATELET ESTIMATE; Range: NORMAL; Status: I Test: NEUTROPHILS; Value: 65; Range: 35-75; Units: %; Status: F Test: LYMPHOCYTES; Value: 29; Range: 16-52; Units: %; Status: F Test: MONOCYTES; Value: 1; Range: 0-8; Units: %; Status: F Test: EOSINOPHILS; Value: 4; Range: 0-5; Units: %; Status: F Test: BASOPHILS; Value: 1; Range: 0-4; Units: %; Status: F Test: NUCLEATED RED BLOOD CELL; Value: 2; Range: 0-0; Abnormal: Above high normal; Units: %; Status: F Test: POLYCHROMASIA; Value: 1+; Status: F Test: POIKILOCYTOSIS; Value: 1+; Status: F Test: ANISOCYTOSIS; Value: 2+; Status: F Test: MACROCYTOSIS; Value: 3+; Status: F Test: TEAR DROP CELLS; Value: 1+; Status: F Lab Order: Lipase; SPEC'M 11/24/16 15:47 Test: LIPASE; Value: 116; Range: 73-393; Units: U/L; Status: F Lab Order: Liver Profile; [facility] 11/24/16 15:47 Test: AST/SGOT; Value: 157; Range: 15-37; Abnormal: Above high normal; Units: U/L; Status: F Test: ALT/SGPT; Value: 71; Range: 12-78; Units: U/L; Status: F Test: ALKALINE PHOSPHATASE; Value: 92; Range: 45-117; Units: U/L; Status: F Test: BILIRUBIN,TOTAL; Value: 2.6; Range: 0.2-1.0; Abnormal: Above high normal; Units: MG/DL; Status: F Test: BILIRUBIN,DIRECT; Value: 0.4; Range: 0.0-0.2; Abnormal: Above high normal; Units: MG/DL; Status: F Test: TOTAL PROTEIN; Value: 7.4; Range: 6.4-8.2; Units: GM/DL; Status: F Test: ALBUMIN; Value: 3.8; Range: 3.2-5.2; Units: GM/DL; Status: F Test: ALBUMIN/GLOBULIN RATIO; Value: 1.06; Range: 1.00-1.93; Status: F Lab Order: Prothrombin Time Profile\\E\\INR; [facility] 11/24/16 15:47 Test: PROTHROMBIN TIME; Value: 13.8; Range: 12.3-14.5; Units: SECONDS; Status: F Test: INR; Value: 1.05; Status: F Test Note: ; THERAPUTIC HUMAN INR VALUES INDICATIONS NORMAL RANGES PROPHYLAXIS/TREATMENT OF: VENOUS THROMBOSIS 2.0-3.0 PULMONARY EMBOLISM 2.0-3.0 PREVENTION OF SYSTEMIC EMBOLISM FROM: TISSUE HEART VALVES 2.0-3.0 ACUTE MYOCARDIAL INFARCTION 2.0-3.0 VALVULAR HEART DISEASE 2.0-3.0 ATRIAL FIBRILLATION 2.0-3.0 MECHANICAL VALVES(HIGH RISK) 2.5-3.5 RECURRENT MYOCARDIAL INFARCTION 2.5-3.5 Lab Order: Urinalysis; [facility] 11/24/16 16:36 Test: APPEARANCE, URINE; Value: CLEAR; Range: CLEAR; Status: F Test: COLOR, URINE; Value: DILLON; Range: YELLOW; Status: F Test: PH,URINE; Value: 6.0; Range: 5.0-9.0; Units: UNITS; Status: F Test: SPECIFIC GRAVITY URINE AUTO; Value: 1.019; Range: 1.002-1.035; Status: F Test: PROTEIN, URINE AUTO; Value: 1+; Range: NEGATIVE; Abnormal: Above high normal; Units: mg/dL; Status: F Test: GLUCOSE, URINE (UA) AUTO; Value: NEGATIVE; Range: NEGATIVE; Units: mg/dL; Status: F Test: KETONE, URINE AUTO; Value: TRACE; Range: NEGATIVE; Abnormal: Above high normal; Units: mg/dL; Status: F Test: UROBILINOGEN, URINE AUTO; Value: 4.0; Range: 0.0-2.0; Abnormal: Above high normal; Units: mg/dL; Status: F Test: BILIRUBIN, URINE AUTO; Value: 1+; Range: NEGATIVE; Abnormal: Above high normal; Status: F Test: NITRITE, URINE AUTO; Value: NEGATIVE; Range: NEGATIVE; Status: F Test: LEUKOCYTE ESTERASE, URINE AUTO; Value: 3+; Range: NEGATIVE; Abnormal: Above high normal; Status: F Test: BLOOD, URINE BLOOD; Value: 1+; Range: NEGATIVE; Abnormal: Above high normal; Status: F Test: WBC, URINE AUTO; Value: TNTC; Range: 0-3; Abnormal: Above high normal; Units: /HPF; Status: F Test: RBC, URINE AUTO; Value: 7; Range: 0-3; Abnormal: Above high normal; Units: /HPF; Status: F Test: BACTERIA, URINE AUTO; Value: 3+; Range: NEGATIVE; Abnormal: Above high normal; Status: F Test: SQUAMOUS EPITHELIAL CELL UR AU; Value: 1; Range: 0-6; Units: /HPF; Status: F Test: MUCUS, URINE; Value: LARGE; Range: NEGATIVE; Status: F Test: HYALINE CAST, URINE AUTO; Value: 5; Range: 0-1; Units: /LPF; Status: F Test: AMORPHOUS SEDIMENT; Value: SMALL; Range: NEGATIVE; Abnormal: Above high normal; Status: F Lab Order: Urine Culture; SPEC'M 11/24/16 16:35 Test: URINE CULTURE; Value: <EXTERNAL COMMENT eCWMed> FULL REPORT IN LAB NOTES (eCW and Medent).; Status: F Test: URINE CULTURE; Value: ORGANISM 1: ESCHERICHIA COLI; Status: F Test: URINE CULTURE; Value: ESCHERICHIA COLI; Status: F Test: URINE CULTURE; Value: COLONY COUNT CFU/ml >100,000; Status: F Test: URINE CULTURE; Value: GRAM NEG SENSI - VITEK 80; Status: F Test: URINE CULTURE; Value: Method: VIT2; Status: F Test: URINE CULTURE; Value: EXTD BRD SPCTRM BETA LACTAMASE -; Status: F Test: URINE CULTURE; Value: TRIMETHOPRIM/SULFAMETHOXAZOLE <=20 S; Status: F Test: URINE CULTURE; Value: AMPICILLIN >=32 R; Status: F Test: URINE CULTURE; Value: GENTAMICIN <=1 S; Status: F Test: URINE CULTURE; Value: NITROFURANTOIN <=16 S; Status: F Test: URINE CULTURE; Value: CEFAZOLIN <=4 S; Status: F Test: URINE CULTURE; Value: LEVOFLOXACIN >=8 R; Status: F Test: URINE CULTURE; Value: TOBRAMYCIN <=1 S; Status: F Test: URINE CULTURE; Value: CEFTRIAXONE <=1 S; Status: F Test: URINE CULTURE; Value: CEFTAZIDIME <=1 S; Status: F Test: URINE CULTURE; Value: AMPICILLIN/SULBACTAM >=32 R; Status: F Test: URINE CULTURE; Value: PIPERACILLIN/TAZOBACTAM <=4 S; Status: F Test: URINE CULTURE; Value: AZTREONAM <=1 S; Status: F Test: URINE CULTURE; Value: ERTAPENEM <=0.5 S; Status: F Test: URINE CULTURE; Value: MEROPENEM <=0.25 S; Status: F Test: URINE CULTURE; Value: TIGECYCLINE <=0.5 S; Status: F Test: URINE CULTURE; Value: CEFEPIME <=1 S; Status: F Lab Order: PLATELET ESTIMATE; SPEC'M 11/24/16 15:47 Test: PLATELET ESTIMATE; Value: NORMAL; Range: NORMAL; Status: F Radiology Order: Abdomen, Flat\\E\\Upright,PA Chest Test: Abdomen, Flat\\E\\Upright,PA Chest REASON FOR EXAMINATION: Abdomen Pain; ABDOMEN AND FLAT UPRIGHT PA CHEST, THREE VIEWS:; ; HISTORY: Abdominal pain.; ; A small amount of air is present in small and large intestine. There are no air; fluid levels or dilated loops of intestine. There is no pneumoperitoneum. A 10; mm calcification is present in the left lateral abdomen. The lungs are clear.; ; IMPRESSION:; ; Nonspecific bowel gas pattern.; ; ; Signed by; Suleiman Colon MD 11/24/2016 04:05 P; Outcome: 17:56 Discharge ordered by Provider. dariana 18:21 Discharge Assessment: Patient awake, alert and oriented x 3. No cognitive and/or [facility] functional deficits noted. Patient verbalized understanding of disposition instructions. patient administered narcotics - no. The following High Risk Discharge criteria are identified: None. Discharged to home ambulatory, with family. Condition: good Condition: stable Condition: improved. Discharge instructions given to patient, Instructed on discharge instructions, follow up and referral plans. medication usage, Demonstrated understanding of instructions, medications, Pt was receptive of discharge instructions/ teaching. Prescriptions given X 4. No special radiology studies were completed. Property :Personal belongings accompany Pt. 18:24 Patient left the ED. [facility] Addendum: 11/27/2016 10:16 Narrative: Urine culture results reviewed with Dr. Melchor and Rx changed to Macrobid kcs 100 mg po BID x 10 days. Message left for patient to call us so we can call Rx into her pharmacy. 10:54 Narrative: Patient called back and given results - requests [facility] on [address] [facility]. kcs Rx called in. Signatures: Dispatcher [employer] EDMS Yuko Gillis RN RN Savanah Sam, Reg Reg Chon Collazo, CHIEF CREATIVE OFFICER CHIEF CREATIVE OFFICER Amalia RondonRN RN [email or web address] Uriah Harrison Jane, RN RN [facility] Heidi Pat RN RN ttb [place], Jordain, Bibiana Sofia Chart Complete MTDD
--- NOTE | 2016-11-27 11:02 | EDDOCDS ---
Physician Documentation [facility] Name: Spring Hamilton Age: 56 yrs Sex: Female : 1960 Arrival Date: 11/24/2016 Time: 14:20 Bed I5 / M5 Private MD: NO PRIMARY PHYSICIAN, . Disposition: 11/24/16 17:56 Discharged to Home/Self Care. Impression: Anemia, unspecified, Urinary tract infection, site not specified, Nausea. - Condition is Stable. - Discharge Instructions: Anemia, Nonspecific, Urinary Tract Infection, [id number]. - Prescriptions for Cipro 500 mg Oral Tablet - take 1 tablet by ORAL route every 12 hours; 14 tablet. Pyridium 200 mg Oral Tablet - take 1 tablet by ORAL route every 8 hours for 3 days; 9 tablet. Zofran 4 mg Oral Tablet - take 1 tablet by ORAL route 4 times per day As needed; 10 tablet. - Medication Reconciliation, Local Pharmacy Hours form. - Follow up: Private Physician; When: 4 - 5 days; Reason: Recheck today's complaints, Continuance of care. - Problem is an ongoing problem. - Symptoms are unchanged. Historical: - Allergies: No known drug Allergies; - Home Meds: 1. pantoprazole 40 mg oral TbEC 1 tab once daily hasn't been taking because she read side effects 2. ibuprofen 800 mg Oral tab as needed (Last dose: Unknown) - PMHx: GERD; - PSHx: Cesearean Section; - Social history: Smoking status: Patient states was never smoker of tobacco. No barriers to communication noted, The patient speaks fluent Czech, Speaks appropriately for age. - Family history: Not pertinent. - : The pt / caregiver states he / she is not on anticoagulants. Home medication list is obtained from the patient. - Exposure Risk Screening:: None identified. [employer] HELPER: 11/24 14:39 LMP N/A - Post-menopause ck1 Vital Signs: 14:21 BP 147 / 77; Pulse 90; Resp 18; Temp 98.6(O); Pulse Ox 100% on R/A; Weight 102.51 kg / dem1 226 lbs (M); Height 5 ft. 4 in. (162.56 cm); Pain 0/10; 18:21 BP 143 / 74; Pulse 80; Resp 16; Temp 97.7; Pulse Ox 95% ; Pain 0/10; cjh 14:21 Body Mass Index 38.79 (102.51 kg, 162.56 cm) dem1 MDM: 15:15 Undress patient appropriately for examination ordered. ke 15:15 NS 0.9% 1000 ml IV at 250 mL/hr continuous ordered. ke 15:15 Ondansetron 4 mg IVP once ordered. ke 15:15 pantoprazole 40 mg IV at bolus once ordered. ke 15:16 Amylase Ordered. EDMS 15:16 Basic Metabolic Profile Ordered. EDMS 15:16 CBC with Diff Ordered. EDMS 15:16 Lipase Ordered. EDMS 15:16 Liver Profile Ordered. EDMS 15:16 Prothrombin Time Profile\E\INR Ordered. EDMS 15:16 Urinalysis Ordered. EDMS 15:17 Urine Culture Ordered. EDMS 15:17 Abdomen, Flat\E\Upright,PA Chest Ordered. EDMS 15:17 NOTHING BY MOUTH+DIET ordered. EDMS 15:18 GASTROINTESTINAL (GI) PANEL Ordered. EDMS 16:14 DIFFERENTIAL NO CHARGE Ordered. EDMS 16:14 PLATELET ESTIMATE Ordered. EDMS 16:42 Financial registration complete. gjb 16:58 [facility] Payment Agreement was scanned into [employer] and attached to record. gjb 17:04 Basic Metabolic Profile Reviewed. ke 17:04 CBC with Diff Reviewed. ke 17:04 Liver Profile Reviewed. ke 17:04 Amylase Reviewed. ke 17:04 Lipase Reviewed. ke 17:04 Prothrombin Time Profile\E\INR Reviewed. ke 17:04 Abdomen, Flat\E\Upright,PA Chest Reviewed. ke 17:45 CBC with Diff Reviewed. ke 17:45 Urinalysis Reviewed. ke 17:45 PLATELET ESTIMATE Reviewed. ke 11/25 09:56 T-Sheet-- Draft Copy was scanned into [employer] and attached to record. gb Administered Medications: 11/24 16:15 Drug: Ondansetron 4 mg Route: IVP; Site: left antecubital; [facility] 16:15 Drug: pantoprazole 40 mg [pantoprazole 40 mg intravenous solution] Route: IV; Rate: cjh bolus; Site: left antecubital; 16:16 Drug: NS 0.9% 1000 ml Route: IV; Rate: 250 mL/hr; Site: right antecubital; [facility] 18:23 Follow up: IV Status: Infusion discontinued; IV Intake: 250ml [facility] Signatures: Dispatcher [employer] EDMS Savanah Torres, Reg Reg gb Chon Qiu, POLL WATCHER POLL WATCHER Amalia RondonRN RN ck1 Anahi RussoRN RN [facility] Bibiana Hoffmann The chart was reviewed and I authenticate all verbal orders and agree with the evaluation and treatment provided.Corrections: (The following items were deleted from the chart) 15:18 15:17 GASTROINTESTINAL (GI) PANEL+AZUCENA ordered. EDMS EDMS Attachments: 16:58 [facility] Payment Agreement [facility] 11/25 09:56 T-Sheet-- Draft Copy Chart Complete MTDD
== END 2016-11-24 18:24 | disposition home or self-care (01) ==
LOC: M ED 14:20
DX: D64.9 Anemia, unspecified (principal); N39.0 Urinary tract infection, site not specified; R11.0 Nausea; K21.9 Gastro-esophageal reflux disease without esophagitis; Z79.899 Other long term (current) drug therapy
CPT/HCPCS: 36415; 74022; 80048; 80076; 81001; 82150; 83690; 85025; 85610; 87088; 87186; 96361; 96374; 96375; 99284; C9113; J2405